=== PATIENT | female | born 1975 | race Caucasian/White ===

== ENCOUNTER 2019-06-29 11:19 | Emergency (ER) | payer OTHER | END 2019-06-29 12:42 | disposition home or self-care (01) | LOC: JER 11:19 ==

== ENCOUNTER 2021-12-01 11:04 | Emergency (ER) | payer OTHER ==
[2021-12-01 12:48] VITALS: TEMP 98.8; BMI 22.9
[2021-12-01] MEDS ORDERED: SODIUM CHLORIDE 0.9% 1000 ML INFUS.BAG IV ONE (13:13)
[2021-12-01 13:52] LABS: BASO % 0.3 % (0-2.0); EOS % 0.1 % (0-4.5); HEMATOCRIT 28.9 % (32.4-45.2); HEMOGLOBIN 9.9 GM/dL (10.7-15.3); LYMPH % 23.9 % (8-40); MCH 28.4 pg (25.7-33.7); MCHC 34.4 g/dl (32.0-36.0); MEAN CELL VOLUME 82.6 fl (80-96); MEAN PLT VOLUME 8.2 fl (7.5-11.1); MONO % 6.5 % (3.8-10.2); NEUT % 69.2 % (42.8-82.8); PLATELET COUNT 261 10^3/uL (134-434); RBC 3.49 M/mm3 (3.60-5.2); RDW 13.3 % (11.6-15.6); WHITE BLOOD COUNT 5.5 K/mm3 (4.0-10.0)
[2021-12-01 14:09] LABS: CHLORIDE 95 mmol/L (98-107); SODIUM 132 mmol/L (136-145)
[2021-12-01 14:11] LABS: CALCIUM 9.1 mg/dL (8.5-10.1)
[2021-12-01 14:12] LABS: ALBUMIN 3.2 g/dl (3.4-5.0); ANION GAP 15 MMOL/L (8-16); BLOOD UREA NITROGEN 35.2 mg/dL (7-18); CO2 22 mmol/L (21-32); GLUCOSE,RANDOM 94 mg/dL (74-106); MAGNESIUM 1.8 mg/dL (1.8-2.4)
[2021-12-01 14:15] LABS: PHOSPHOROUS 3.4 mg/dL (2.5-4.9); SGOT/AST 11 U/L (15-37); SGPT/ALT 15 U/L (13-61)
[2021-12-01 14:17] LABS: BILIRUBIN,TOTAL 0.4 mg/dL (0.2-1)
[2021-12-01 14:18] LABS: ALK PHOS 119 U/L (45-117); TOT PROT 7.4 g/dl (6.4-8.2)
[2021-12-01 14:23] LABS: CREATININE 15.7 mg/dL (0.55-1.3)
[2021-12-01 17:47] VITALS: BP 104/80; PULSE 96
== END 2021-12-01 18:30 | disposition left against medical advice (07) ==
LOC: JER 11:04
DX: U07.1 COVID-19 (principal); R53.0 Neoplastic (malignant) related fatigue
CPT/HCPCS: 36415; 71045-TC-FY; 80053; 82550; 83735; 84100; 84484; 85025; 93005; 93010; 99285-25; C9803; U0003; U0005

== ENCOUNTER 2022-10-15 10:27 | Observation (INO) | payer OTHER ==
[2022-10-15 10:41] VITALS: RESP 18; BMI 27.3
[2022-10-15 11:45] LABS: BASO % 0.7 % (0-2.0); EOS % 2.2 % (0-4.5); HEMATOCRIT 17.2 % (32.4-45.2); LYMPH % 17.4 % (8-40); MCH 29.6 pg (25.7-33.7); MCHC 34.7 g/dl (32.0-36.0); MEAN CELL VOLUME 85.1 fl (80-96); MEAN PLT VOLUME 6.5 fl (7.5-11.1); MONO % 6.6 % (3.8-10.2); NEUT % 73.1 % (42.8-82.8); PLATELET COUNT 282 10^3/uL (134-434); RBC 2.02 M/mm3 (3.60-5.2); RDW 13.6 % (11.6-15.6); WHITE BLOOD COUNT 6.7 K/mm3 (4.0-10.0)
[2022-10-15 11:49] LABS: INR 0.92 (0.83-1.09); PROTHROMBIN TIME (PATIENT) 10.6 SEC (9.7-13.0)
[2022-10-15 11:51] LABS: ACTIVATED PTT 29.5 SECONDS (25.2-36.5)
[2022-10-15 12:10] LABS: CHLORIDE 97 mmol/L (98-107); SODIUM 135 mmol/L (136-145)
[2022-10-15 12:12] LABS: ALBUMIN 2.8 g/dl (3.4-5.0); ANION GAP 11 MMOL/L (8-16); BLOOD UREA NITROGEN 55.7 mg/dL (7-18); CALCIUM 8.2 mg/dL (8.5-10.1); CO2 27 mmol/L (21-32); GLUCOSE,RANDOM 96 mg/dL (74-106); MAGNESIUM 1.5 mg/dL (1.8-2.4)
[2022-10-15 12:16] LABS: PHOSPHOROUS 7.7 mg/dL (2.5-4.9); SGOT/AST 14 U/L (15-37); SGPT/ALT 24 U/L (13-61)
[2022-10-15 12:18] LABS: BILIRUBIN,TOTAL 0.2 mg/dL (0.2-1)
[2022-10-15 12:19] LABS: ALK PHOS 93 U/L (45-117)
[2022-10-15 12:23] LABS: CREATININE 13.7 mg/dL (0.55-1.3)
[2022-10-15] MEDS ORDERED: NAPROXEN 500 MG TABLET PO PRN (12:59)
[2022-10-15] MEDS ORDERED: oxyCODONE HCL 5 MG TABLET PO PRN (13:00)
[2022-10-15] MEDS ORDERED: ACETAMINOPHEN 325 MG TABLET (FP) PO PRN (13:00)
[2022-10-15] MEDS ORDERED: ACETAMINOPHEN 325 MG TABLET (FP) ONE (15:28)
[2022-10-15] MEDS ORDERED: oxyCODONE HCL 5 MG TABLET ONE (15:29)
[2022-10-15] MEDS ORDERED: PERITONEAL DIALYSIS 1.5% SOLN 2,500 ML IP SCH (16:30)
[2022-10-15] MEDS ORDERED: FUROSEMIDE 40 MG/4 ML INJECTABLE VIAL ONE (17:59)
[2022-10-15] MEDS ORDERED: FUROSEMIDE 40 MG/4 ML INJECTABLE VIAL IVPUSH SCH (18:00)
[2022-10-15 20:30] VITALS: BP 146/94; PULSE 86
[2022-10-15 21:46] VITALS: TEMP 98.8
[2022-10-16] MEDS ORDERED: LEVOTHYROXINE NA 25 MCG TABLET (FP) PO SCH (07:00)
[2022-10-16] MEDS ORDERED: CYCLOBENZAPRINE HCL 5 MG TABLET PO SCH (10:00)
== END 2022-10-15 22:58 | disposition home or self-care (01) ==
LOC: JER 10:27 → JERBED 12:43
PROVIDERS: ADMIT Internal Medicine; ATTEND Internal Medicine
PROC: 3E033GC Introduction of Other Therapeutic Substance into Peripheral Vein, Percutaneous Approach (ICD-10-PCS; principal; 2022-10-15)
PROC: 30233N1 Transfusion of Nonautologous Red Blood Cells into Peripheral Vein, Percutaneous Approach (ICD-10-PCS; 2022-10-15)
DX: D64.9 Anemia, unspecified (principal); N18.6 End stage renal disease; C85.80 Other specified types of non-Hodgkin lymphoma, unspecified site; Z99.2 Dependence on renal dialysis; Z88.8 Allergy status to other drugs, medicaments and biological substances; E05.90 Thyrotoxicosis, unspecified without thyrotoxic crisis or storm
CPT/HCPCS: 36430; 80053; 83735; 84100; 84484; 85025; 85610; 85730; 86922; 93005; 93010; 96374; 99285-25; C9803-CS; G0378; P9058; U0003; U0005

== ENCOUNTER 2022-11-18 19:40 | Observation (INO) | payer OTHER ==
[2022-11-18 19:44] VITALS: BMI 25.8
[2022-11-18] MEDS ORDERED: SODIUM CHLORIDE 0.9% 500 ML INFUS.BAG IV ONE (20:18)
[2022-11-18] MEDS ORDERED: FAMOTIDINE 20 MG/50 ML IVPB 20 MG/50 ML MG IVPB ONE ×2 (20:19→20:46)
[2022-11-18] MEDS ORDERED: ONDANSETRON 4 MG/2 ML VIAL IVPUSH ONE ×2 (20:32→23:12)
[2022-11-18] MEDS ORDERED: ONDANSETRON 4 MG/2 ML VIAL ONE (20:46)
[2022-11-18] MEDS ORDERED: ACETAMINOPHEN 1000 MG/100 ML BAG IVPB ONE (20:47)
[2022-11-18] MEDS ORDERED: ACETAMINOPHEN INJECTION 100 ML IVPB ONE (20:47)
[2022-11-18 20:55] LABS: BASO % 0.2 % (0-2.0); HEMATOCRIT 31.8 % (32.4-45.2); HEMOGLOBIN 10.7 GM/dL (10.7-15.3); LYMPH % 10.7 % (8-40); MCH 28.2 pg (25.7-33.7); MCHC 33.7 g/dl (32.0-36.0); MEAN CELL VOLUME 83.7 fl (80-96); MEAN PLT VOLUME 7.4 fl (7.5-11.1); MONO % 3.1 % (3.8-10.2); PLATELET COUNT 367 10^3/uL (134-434); RBC 3.79 M/mm3 (3.60-5.2); RDW 13.4 % (11.6-15.6); WHITE BLOOD COUNT 12.9 K/mm3 (4.0-10.0)
[2022-11-18 21:19] LABS: CHLORIDE 88 mmol/L (98-107); SODIUM 130 mmol/L (136-145)
[2022-11-18 21:21] LABS: CALCIUM 10.1 mg/dL (8.5-10.1)
[2022-11-18 21:22] LABS: ALBUMIN 3.8 g/dl (3.4-5.0); CO2 25 mmol/L (21-32); GLUCOSE,RANDOM 127 mg/dL (74-106); LIPASE 452 U/L (73-393); MAGNESIUM 1.6 mg/dL (1.8-2.4)
[2022-11-18 21:24] LABS: SGPT/ALT 15 U/L (13-61)
[2022-11-18 21:25] LABS: PHOSPHOROUS 3.8 mg/dL (2.5-4.9); SGOT/AST 10 U/L (15-37)
[2022-11-18 21:26] LABS: BF WBC & OTHER NUCLEATED CELLS 8 /mm3
[2022-11-18 21:26] LABS: BILIRUBIN,TOTAL 0.7 mg/dL (0.2-1); TOT PROT 7.9 g/dl (6.4-8.2)
[2022-11-18 21:27] LABS: ALK PHOS 138 U/L (45-117); ANION GAP 16 MMOL/L (8-16); CREATININE 15.5 mg/dL (0.55-1.3)
[2022-11-18] MEDS ORDERED: MAGNESIUM SULF 50% (8.12 MEQ/2 ML-1 GM VIAL) IVPB ONE ×2 (21:36→21:43)
[2022-11-18] MEDS ORDERED: POTASSIUM CHLORIDE TABS 20 MEQ TABLET.ER (FP) PO ONE (21:36)
[2022-11-18] MEDS ORDERED: POTASSIUM CHLORIDE ORAL LIQUID 20 MEQ/15 ML PO ONE (21:42)
[2022-11-18] MEDS ORDERED: POTASSIUM CHLORIDE ORAL LIQUID 20 MEQ/15 ML ONE (22:44)
[2022-11-18] MEDS ORDERED: MAGNESIUM 1GM/D5W - 1 GM/100 ML IVPB IVPB ONE (22:44)
[2022-11-19] MEDS ORDERED: ONDANSETRON 4 MG/2 ML VIAL ONE (00:12)
[2022-11-19 00:45] LABS: CHLORIDE 91 mmol/L (98-107); SODIUM 131 mmol/L (136-145)
[2022-11-19 00:47] LABS: ALBUMIN 3.4 g/dl (3.4-5.0); BLOOD UREA NITROGEN 44.5 mg/dL (7-18); CALCIUM 9.6 mg/dL (8.5-10.1); CO2 24 mmol/L (21-32); GLUCOSE,RANDOM 137 mg/dL (74-106)
[2022-11-19 00:50] LABS: SGOT/AST 8 U/L (15-37); SGPT/ALT 14 U/L (13-61)
[2022-11-19 00:52] LABS: BILIRUBIN,TOTAL 0.5 mg/dL (0.2-1)
[2022-11-19 00:53] LABS: ALK PHOS 121 U/L (45-117)
[2022-11-19] MEDS ORDERED: METOCLOPRAMIDE HCL INJECTION 10 MG/2 ML VIAL ONE (00:57)
[2022-11-19] MEDS ORDERED: METOCLOPRAMIDE HCL INJECTION 10 MG/2 ML VIAL IVPUSH ONE (00:57)
[2022-11-19 01:14] LABS: ANION GAP 15 MMOL/L (8-16); CREATININE 15.1 mg/dL (0.55-1.3)
[2022-11-19] MEDS: KCL 10 MEQ IVPB 10 MEQ/100 ML INFUS.BAG IVPB SCH ×3 (01:50→08:50)
[2022-11-19] MEDS ORDERED: KCL 10 MEQ IVPB 10 MEQ/100 ML INFUS.BAG IVPB ONE ×2 (01:53→04:04)
[2022-11-19] MEDS ORDERED: ALBUTEROL SO4 HFA INHALER IH PRN (01:57)
[2022-11-19] MEDS ORDERED: SODIUM CHLORIDE 0.9% 500 ML INFUS.BAG IV ONE (02:23)
[2022-11-19] MEDS ORDERED: ONDANSETRON *ODT* 4 MG TABLET SL PRN (02:50)
[2022-11-19] MEDS ORDERED: KCL 10 MEQ IVPB 10 MEQ/100 ML INFUS.BAG IVPB SCH (09:00)
[2022-11-19 09:02] LABS: BASO % 0.2 % (0-2.0); HEMOGLOBIN 9.4 GM/dL (10.7-15.3); LYMPH % 13.1 % (8-40); MCH 28.5 pg (25.7-33.7); MCHC 33.6 g/dl (32.0-36.0); MEAN PLT VOLUME 8.1 fl (7.5-11.1); MONO % 4.5 % (3.8-10.2); NEUT % 82.2 % (42.8-82.8); PLATELET COUNT 306 10^3/uL (134-434); RBC 3.29 M/mm3 (3.60-5.2); RDW 13.3 % (11.6-15.6); WHITE BLOOD COUNT 12.2 K/mm3 (4.0-10.0)
[2022-11-19] MEDS: BUDESONIDE/FORMETEROL FUMARATE 160/4.5 mcg INHALER IH SCH ×2 (09:02→22:34)
[2022-11-19 09:09] LABS: CHLORIDE 91 mmol/L (98-107); SODIUM 130 mmol/L (136-145)
[2022-11-19 09:11] LABS: CALCIUM 9.5 mg/dL (8.5-10.1)
[2022-11-19 09:12] LABS: ALBUMIN 3.3 g/dl (3.4-5.0); ANION GAP 17 MMOL/L (8-16); BLOOD UREA NITROGEN 44.8 mg/dL (7-18); CO2 22 mmol/L (21-32); GLUCOSE,RANDOM 107 mg/dL (74-106); MAGNESIUM 2.1 mg/dL (1.8-2.4)
[2022-11-19 09:14] LABS: SGPT/ALT 16 U/L (13-61)
[2022-11-19 09:15] LABS: SGOT/AST 8 U/L (15-37)
[2022-11-19 09:16] LABS: BILIRUBIN,TOTAL 0.5 mg/dL (0.2-1); TOT PROT 6.9 g/dl (6.4-8.2)
[2022-11-19 09:18] LABS: ALK PHOS 119 U/L (45-117)
[2022-11-19 09:25] LABS: CREATININE 15.4 mg/dL (0.55-1.3)
[2022-11-19] MEDS ORDERED: HEPARIN NA (PORCINE) 5,000 UNITS/ML 1ML VIAL SQ SCH (10:00)
[2022-11-19] MEDS ORDERED: POTASSIUM CHLORIDE TABS 20 MEQ TABLET.ER (FP) PO ONE (10:16)
[2022-11-19] MEDS: ACETAMINOPHEN 325 MG TABLET (FP) PO PRN (10:37)
[2022-11-19] MEDS: PERITONEAL DIALYSIS 2.5% SOLN 2,500 ML IP SCH ×2 (16:24→22:20)
[2022-11-19] MEDS: oxyCODONE HCL 5 MG TABLET PO PRN (18:12)
[2022-11-19 19:13] LABS: CHLORIDE 92 mmol/L (98-107); SODIUM 131 mmol/L (136-145)
[2022-11-19 19:16] LABS: CALCIUM 9.2 mg/dL (8.5-10.1)
[2022-11-19 19:17] LABS: ANION GAP 14 MMOL/L (8-16); BLOOD UREA NITROGEN 42.3 mg/dL (7-18); CO2 24 mmol/L (21-32); GLUCOSE,RANDOM 109 mg/dL (74-106)
[2022-11-19 19:43] LABS: CREATININE 15.5 mg/dL (0.55-1.3)
[2022-11-19] MEDS: HEPARIN NA (PORCINE) 5,000 UNITS/ML 1ML VIAL SQ SCH (22:02)
[2022-11-20 00:35] VITALS: RESP 18
[2022-11-20] MEDS: PERITONEAL DIALYSIS 2.5% SOLN 2,500 ML IP SCH ×3 (04:25→17:02)
[2022-11-20] MEDS: HEPARIN NA (PORCINE) 5,000 UNITS/ML 1ML VIAL SQ SCH (05:19)
[2022-11-20 07:52] LABS: HEMOGLOBIN 8.1 GM/dL (10.7-15.3); MCH 28.6 pg (25.7-33.7); MEAN CELL VOLUME 84.4 fl (80-96); MEAN PLT VOLUME 7.8 fl (7.5-11.1); PLATELET COUNT 263 10^3/uL (134-434); RBC 2.84 M/mm3 (3.60-5.2); RDW 13.6 % (11.6-15.6); WHITE BLOOD COUNT 8.5 K/mm3 (4.0-10.0)
[2022-11-20 08:14] LABS: CHLORIDE 96 mmol/L (98-107); SODIUM 135 mmol/L (136-145)
[2022-11-20 08:16] LABS: BLOOD UREA NITROGEN 39.2 mg/dL (7-18)
[2022-11-20 08:17] LABS: ANION GAP 16 MMOL/L (8-16); CALCIUM 8.5 mg/dL (8.5-10.1); CO2 24 mmol/L (21-32); GLUCOSE,RANDOM 97 mg/dL (74-106); MAGNESIUM 1.9 mg/dL (1.8-2.4)
[2022-11-20 08:20] LABS: PHOSPHOROUS 4.1 mg/dL (2.5-4.9)
[2022-11-20 08:30] LABS: CREATININE 14.7 mg/dL (0.55-1.3)
[2022-11-20] MEDS ORDERED: POTASSIUM CHLORIDE TABS 20 MEQ TABLET.ER (FP) PO ONE (10:22)
[2022-11-20] MEDS: BUDESONIDE/FORMETEROL FUMARATE 160/4.5 mcg INHALER IH SCH (10:51)
[2022-11-20] MEDS: ACETAMINOPHEN 325 MG TABLET (FP) PO PRN (11:20)
[2022-11-20 15:14] LABS: BASO % 0.6 % (0-2.0); EOS % 1.1 % (0-4.5); HEMATOCRIT 26.9 % (32.4-45.2); LYMPH % 21.2 % (8-40); MCH 28.6 pg (25.7-33.7); MCHC 33.6 g/dl (32.0-36.0); MEAN PLT VOLUME 7.5 fl (7.5-11.1); MONO % 5.4 % (3.8-10.2); NEUT % 71.7 % (42.8-82.8); PLATELET COUNT 279 10^3/uL (134-434); RBC 3.17 M/mm3 (3.60-5.2); RDW 13.6 % (11.6-15.6); WHITE BLOOD COUNT 8.8 K/mm3 (4.0-10.0)
[2022-11-20 16:54] VITALS: BP 132/81; PULSE 82; TEMP 98
[2022-11-20] MEDS: oxyCODONE HCL 5 MG TABLET PO PRN (17:56)
[2022-11-23 13:06] LABS: BODY FLUID ALBUMIN <0.2 g/dL (Not Estab.)
== END 2022-11-20 18:47 | disposition home or self-care (01) | DRG 391 ==
LOC: JER 19:40 → JERBED 11-19 01:21 → OBSVTOIN 11-19 01:21 → INTOOBSV 11-19 01:21 → J4S 11-19 05:18
PROVIDERS: ADMIT Internal Medicine; ATTEND Internal Medicine
PROC: 3E1M39Z Irrigation of Peritoneal Cavity using Dialysate, Percutaneous Approach (ICD-10-PCS; principal; 2022-11-19)
DX: K52.9 Noninfective gastroenteritis and colitis, unspecified (principal); N18.6 End stage renal disease; E87.1 Hypo-osmolality and hyponatremia; E87.0 Hyperosmolality and hypernatremia; Z99.2 Dependence on renal dialysis; D64.9 Anemia, unspecified; E05.90 Thyrotoxicosis, unspecified without thyrotoxic crisis or storm; E87.6 Hypokalemia
CPT/HCPCS: 0241U-QW; 36415; 71045-TC-FY; 76705-TC; 80048; 80053; 82042; 82272; 83615; 83690; 83735; 83986; 84100; 85025; 85027; 87040; 87070; 87075; 87205; 93005; 93010; 99285-25; G0378; Q0162

== ENCOUNTER 2022-12-24 16:11 | Emergency (ER) | payer OTHER ==
[2022-12-24 16:47] VITALS: BP 115/87; PULSE 112; RESP 18; TEMP 98.9; BMI 26.5
[2022-12-24] MEDS ORDERED: ONDANSETRON *ODT* 4 MG TABLET SL ONE (18:29)
[2022-12-24 18:33] LABS: CHLORIDE 89 mmol/L (98-107); SODIUM 130 mmol/L (136-145)
[2022-12-24 18:35] LABS: ALBUMIN 3.6 g/dl (3.4-5.0); ANION GAP 14 MMOL/L (8-16); BASO % 0.5 % (0-2.0); CALCIUM 10.2 mg/dL (8.5-10.1); CO2 27 mmol/L (21-32); EOS % 0.9 % (0-4.5); HEMATOCRIT 29.3 % (32.4-45.2); HEMOGLOBIN 9.9 GM/dL (10.7-15.3); LYMPH % 27.2 % (8-40); MEAN CELL VOLUME 85.4 fl (80-96); MEAN PLT VOLUME 7.4 fl (7.5-11.1); MONO % 6.1 % (3.8-10.2); NEUT % 65.3 % (42.8-82.8); PLATELET COUNT 397 10^3/uL (134-434); RBC 3.43 M/mm3 (3.60-5.2); RDW 13.9 % (11.6-15.6)
[2022-12-24 18:36] LABS: BLOOD UREA NITROGEN 33.5 mg/dL (7-18); GLUCOSE,RANDOM 97 mg/dL (74-106); MAGNESIUM 1.8 mg/dL (1.8-2.4)
[2022-12-24 18:38] LABS: PHOSPHOROUS 3.7 mg/dL (2.5-4.9)
[2022-12-24 18:39] LABS: SGOT/AST 6 U/L (15-37); SGPT/ALT 16 U/L (13-61)
[2022-12-24] MEDS ORDERED: ONDANSETRON *ODT* 4 MG TABLET ONE (18:39)
[2022-12-24 18:40] LABS: BILIRUBIN,TOTAL 0.6 mg/dL (0.2-1); TOT PROT 7.4 g/dl (6.4-8.2)
[2022-12-24 18:41] LABS: ALK PHOS 148 U/L (45-117)
[2022-12-24 18:45] LABS: CREATININE 14.1 mg/dL (0.55-1.3)
[2022-12-24] MEDS ORDERED: SODIUM CHLORIDE 0.9% 500 ML INFUS.BAG IV ONE (19:27)
[2022-12-24] MEDS ORDERED: ACETAMINOPHEN 1000 MG/100 ML BAG IVPB ONE (20:02)
[2022-12-24] MEDS ORDERED: ACETAMINOPHEN INJECTION 100 ML IVPB ONE (20:06)
== END 2022-12-24 21:04 | disposition home or self-care (01) ==
LOC: MERGE 16:11 → JER 16:11
PROC: 3E0333Z Introduction of Anti-inflammatory into Peripheral Vein, Percutaneous Approach (ICD-10-PCS; principal; 2022-12-24)
DX: N18.6 End stage renal disease (principal); A09 Infectious gastroenteritis and colitis, unspecified
CPT/HCPCS: 0241U-QW; 36415; 80053; 82962; 83735; 84100; 85025; 87040; 87070; 87075; 87205; 93005; 93010; 99284-25; Q0162

== ENCOUNTER 2022-12-25 18:20 | Inpatient (IN) | payer OTHER ==
[2022-12-25] MEDS ORDERED: ONDANSETRON 4 MG/2 ML VIAL IVPUSH ONE ×2 (19:14→20:01)
[2022-12-25] MEDS ORDERED: MAG HYDROX/AL HYDROX/SIMETH 30 ML UNIT-DOSE CUP PO ONE (19:15)
[2022-12-25] MEDS ORDERED: FAMOTIDINE 20 MG/50 ML IVPB 20 MG/50 ML MG IVPB ONE ×2 (19:15→19:43)
[2022-12-25] MEDS ORDERED: ONDANSETRON *ODT* 4 MG TABLET SL ONE (19:20)
[2022-12-25] MEDS ORDERED: ONDANSETRON *ODT* 4 MG TABLET ONE (19:43)
[2022-12-25] MEDS ORDERED: MAG HYDROX/AL HYDROX/SIMETH 30 ML UNIT-DOSE CUP ONE (19:43)
[2022-12-25] MEDS ORDERED: ONDANSETRON 4 MG/2 ML VIAL ONE (19:56)
[2022-12-25 20:16] LABS: BASO % 0.4 % (0-2.0); HEMATOCRIT 28.7 % (32.4-45.2); HEMOGLOBIN 9.8 GM/dL (10.7-15.3); LYMPH % 9.8 % (8-40); MCH 28.8 pg (25.7-33.7); MCHC 34.2 g/dl (32.0-36.0); MEAN CELL VOLUME 84.3 fl (80-96); MONO % 3.6 % (3.8-10.2); NEUT % 86.2 % (42.8-82.8); PLATELET COUNT 460 10^3/uL (134-434); RDW 13.7 % (11.6-15.6); WHITE BLOOD COUNT 12.6 K/mm3 (4.0-10.0)
[2022-12-25 20:36] LABS: CHLORIDE 88 mmol/L (98-107); SODIUM 128 mmol/L (136-145)
[2022-12-25 20:37] LABS: MAGNESIUM 1.5 mg/dL (1.8-2.4)
[2022-12-25 20:38] LABS: CALCIUM 10.8 mg/dL (8.5-10.1)
[2022-12-25 20:39] LABS: ALBUMIN 3.7 g/dl (3.4-5.0); ANION GAP 19 MMOL/L (8-16); BLOOD UREA NITROGEN 37.8 mg/dL (7-18); CO2 20 mmol/L (21-32); GLUCOSE,RANDOM 141 mg/dL (74-106); LIPASE 414 U/L (73-393)
[2022-12-25] MEDS ORDERED: ACETAMINOPHEN 1000 MG/100 ML BAG IVPB ONE (20:39)
[2022-12-25 20:41] LABS: PHOSPHOROUS 2.9 mg/dL (2.5-4.9)
[2022-12-25 20:42] LABS: SGOT/AST 10 U/L (15-37)
[2022-12-25 20:43] LABS: BILIRUBIN,TOTAL 0.5 mg/dL (0.2-1); TOT PROT 7.5 g/dl (6.4-8.2)
[2022-12-25 20:44] LABS: ALK PHOS 156 U/L (45-117)
[2022-12-25 20:50] LABS: SGPT/ALT 15 U/L (13-61)
[2022-12-25 20:52] LABS: CREATININE 13.9 mg/dL (0.55-1.3)
[2022-12-25] MEDS ORDERED: ACETAMINOPHEN INJECTION 100 ML IVPB ONE (21:02)
[2022-12-25] MEDS ORDERED: SODIUM CHLORIDE 0.9% 500 ML INFUS.BAG IV ONE (21:05)
[2022-12-25] MEDS ORDERED: morphine CARPU-JECT 2 MG/1 ML DISP.SYRIN IVPUSH ONE (21:22)
[2022-12-25] MEDS ORDERED: MAGNESIUM SULF 50% (8.12 MEQ/2 ML-1 GM VIAL) IVPB ONE (21:22)
[2022-12-25] MEDS ORDERED: MAGNESIUM 1GM/D5W - 1 GM/100 ML IVPB IVPB ONE (22:54)
[2022-12-25] MEDS ORDERED: SODIUM CHLORIDE 1,000 ML IV SCH (23:30)
[2022-12-26 02:23] LABS: HEMATOCRIT 26.1 % (32.4-45.2); HEMOGLOBIN 8.8 GM/dL (10.7-15.3); MCH 28.8 pg (25.7-33.7); MCHC 33.5 g/dl (32.0-36.0); MEAN CELL VOLUME 85.9 fl (80-96); MEAN PLT VOLUME 7.5 fl (7.5-11.1); PLATELET COUNT 378 10^3/uL (134-434); RBC 3.04 M/mm3 (3.60-5.2); RDW 13.9 % (11.6-15.6); WHITE BLOOD COUNT 16.4 K/mm3 (4.0-10.0)
[2022-12-26 02:42] LABS: CHLORIDE 93 mmol/L (98-107); SODIUM 130 mmol/L (136-145)
[2022-12-26 02:43] LABS: CALCIUM 10.2 mg/dL (8.5-10.1)
[2022-12-26 02:44] LABS: ANION GAP 14 MMOL/L (8-16); BLOOD UREA NITROGEN 39.5 mg/dL (7-18); CO2 23 mmol/L (21-32); GLUCOSE,RANDOM 121 mg/dL (74-106)
[2022-12-26] MEDS ORDERED: VANCOMYCIN 1 GM in D5W (PRE-DOCKED) 1,000 MG/250 ML IVPB ONE (03:36)
[2022-12-26] MEDS ORDERED: MEROPENEM 1 GM in DEXTROSE 5%-WATER 100 ML IVPB ONE (03:39)
[2022-12-26] MEDS ORDERED: VANCOMYCIN/WATER FOR INJ (PEG) 1,000 MG/200 ML BAG IVPB ONE (03:54)
[2022-12-26] MEDS ORDERED: MEROPENEM 1 GM VIAL (RESTRICTED TO ID) IVPB ONE (03:54)
[2022-12-26 04:23] LABS: ANISOCYTOSIS 0; MACROCYTOSIS 0
[2022-12-26 07:20] LABS: BASO % 0.2 % (0-2.0); HEMATOCRIT 22.5 % (32.4-45.2); HEMOGLOBIN 7.5 GM/dL (10.7-15.3); LYMPH % 11.7 % (8-40); MCH 28.8 pg (25.7-33.7); MCHC 33.3 g/dl (32.0-36.0); MEAN CELL VOLUME 86.6 fl (80-96); MEAN PLT VOLUME 7.5 fl (7.5-11.1); MONO % 4.2 % (3.8-10.2); NEUT % 83.9 % (42.8-82.8); PLATELET COUNT 316 10^3/uL (134-434); RDW 13.8 % (11.6-15.6); WHITE BLOOD COUNT 13.8 K/mm3 (4.0-10.0)
[2022-12-26 07:35] LABS: CHLORIDE 93 mmol/L (98-107); SODIUM 129 mmol/L (136-145)
[2022-12-26 07:38] LABS: CALCIUM 9.4 mg/dL (8.5-10.1)
[2022-12-26 07:39] LABS: ANION GAP 11 MMOL/L (8-16); BLOOD UREA NITROGEN 40.3 mg/dL (7-18); CO2 25 mmol/L (21-32); GLUCOSE,RANDOM 108 mg/dL (74-106)
[2022-12-26 07:42] LABS: PHOSPHOROUS 6.4 mg/dL (2.5-4.9); SGOT/AST 8 U/L (15-37); SGPT/ALT 11 U/L (13-61)
[2022-12-26 07:43] LABS: BILIRUBIN,TOTAL 0.4 mg/dL (0.2-1)
[2022-12-26 07:46] LABS: ALBUMIN 2.9 g/dl (3.4-5.0); ALK PHOS 126 U/L (45-117); CREATININE 13.9 mg/dL (0.55-1.3)
[2022-12-26] MEDS: HEPARIN NA (PORCINE) 5,000 UNITS/ML 1ML VIAL SQ SCH ×3 (10:01→21:14)
[2022-12-26 10:35] VITALS: BMI 26.5
[2022-12-26] MEDS ORDERED: SODIUM CHLORIDE 1,000 ML IV SCH (10:45)
[2022-12-26] MEDS: PERITONEAL DIALYSIS 1.5% SOLN 2,500 ML IP SCH ×3 (12:26→22:50)
[2022-12-26] MEDS ORDERED: MELATONIN 5 MG TABLETS PO ONE (20:41)
[2022-12-26] MEDS ORDERED: MAG HYDROX/AL HYDROX/SIMETH 30 ML UNIT-DOSE CUP PO ONE (20:41)
[2022-12-27] MEDS: HEPARIN NA (PORCINE) 5,000 UNITS/ML 1ML VIAL SQ SCH ×2 (05:40→14:27)
[2022-12-27] MEDS: PERITONEAL DIALYSIS 1.5% SOLN 2,500 ML IP SCH ×3 (05:55→17:04)
[2022-12-27 10:19] LABS: BASO % 0.8 % (0-2.0); EOS % 1.6 % (0-4.5); HEMATOCRIT 24.4 % (32.4-45.2); HEMOGLOBIN 8.3 GM/dL (10.7-15.3); LYMPH % 26.5 % (8-40); MCH 29.6 pg (25.7-33.7); MCHC 34.1 g/dl (32.0-36.0); MEAN CELL VOLUME 86.7 fl (80-96); MONO % 5.8 % (3.8-10.2); NEUT % 65.3 % (42.8-82.8); PLATELET COUNT 295 10^3/uL (134-434); RBC 2.82 M/mm3 (3.60-5.2); WHITE BLOOD COUNT 10.1 K/mm3 (4.0-10.0)
[2022-12-27 10:26] LABS: CHLORIDE 95 mmol/L (98-107); SODIUM 133 mmol/L (136-145)
[2022-12-27 10:28] LABS: ANION GAP 14 MMOL/L (8-16); CALCIUM 9.1 mg/dL (8.5-10.1); CO2 23 mmol/L (21-32)
[2022-12-27 10:29] LABS: GLUCOSE,RANDOM 101 mg/dL (74-106)
[2022-12-27 10:32] LABS: SGOT/AST 18 U/L (15-37); SGPT/ALT 13 U/L (13-61)
[2022-12-27 10:33] LABS: BILIRUBIN,TOTAL 0.3 mg/dL (0.2-1)
[2022-12-27 10:35] LABS: ALK PHOS 125 U/L (45-117)
[2022-12-27] MEDS ORDERED: EPOETIN ALFA-EPBX 10,000 UNIT/ML VIAL SQ ONE (14:00)
[2022-12-27 14:22] VITALS: BP 126/78; PULSE 74; RESP 20; TEMP 98.6
== END 2022-12-27 18:19 | disposition home or self-care (01) | DRG 391 ==
LOC: JER 18:20 → JERBED 23:11 → J4S 12-26 08:59
PROVIDERS: ADMIT Internal Medicine; ATTEND Internal Medicine
PROC: 3E1M39Z Irrigation of Peritoneal Cavity using Dialysate, Percutaneous Approach (ICD-10-PCS; principal; 2022-12-26)
DX: R11.2 Nausea with vomiting, unspecified (principal); N18.6 End stage renal disease; C85.90 Non-Hodgkin lymphoma, unspecified, unspecified site; E87.1 Hypo-osmolality and hyponatremia; I12.0 Hypertensive chronic kidney disease with stage 5 chronic kidney disease or end stage renal disease; D64.9 Anemia, unspecified; N83.8 Other noninflammatory disorders of ovary, fallopian tube and broad ligament; E86.0 Dehydration
CPT/HCPCS: 0241U-QW; 36415; 71045-TC-FY; 76830-TC; 80048; 80053; 83690; 83735; 84100; 84443; 84702; 84703; 85025; 86304; 87040; 93005; 93010; 99285-25; J1644; Q5106

== ENCOUNTER 2023-05-29 20:27 | Observation (INO) | payer OTHER ==
[2023-05-29 20:35] VITALS: BMI 26.3
[2023-05-29] MEDS ORDERED: ACETAMINOPHEN 1000 MG/100 ML BAG IVPB ONE (21:48)
[2023-05-29] MEDS ORDERED: FAMOTIDINE 20 MG/50 ML IVPB 20 MG/50 ML MG IVPB ONE ×2 (21:48→21:59)
[2023-05-29] MEDS ORDERED: MAG HYDROX/AL HYDROX/SIMETH 30 ML UNIT-DOSE CUP PO ONE (21:49)
[2023-05-29] MEDS ORDERED: SODIUM CHLORIDE 0.9% 500 ML INFUS.BAG IV ONE ×2 (21:51→23:55)
[2023-05-29] MEDS ORDERED: ONDANSETRON 4 MG/2 ML VIAL IVPUSH ONE (21:54)
[2023-05-29] MEDS ORDERED: MAG HYDROX/AL HYDROX/SIMETH 30 ML UNIT-DOSE CUP ONE (21:59)
[2023-05-29] MEDS ORDERED: ACETAMINOPHEN INJECTION 100 ML IVPB ONE (21:59)
[2023-05-29] MEDS ORDERED: ONDANSETRON 4 MG/2 ML VIAL ONE (21:59)
[2023-05-29 22:22] LABS: BASO % 0.4 % (0-2.0); EOS % 0.2 % (0-4.5); HEMATOCRIT 31.2 % (32.4-45.2); HEMOGLOBIN 10.6 GM/dL (10.7-15.3); LYMPH % 18.2 % (8-40); MCH 28.3 pg (25.7-33.7); MEAN CELL VOLUME 83.1 fl (80-96); MEAN PLT VOLUME 7.6 fl (7.5-11.1); MONO % 5.3 % (3.8-10.2); NEUT % 75.9 % (42.8-82.8); PLATELET COUNT 360 10^3/uL (134-434); RBC 3.75 M/mm3 (3.60-5.2); RDW 13.8 % (11.6-15.6); WHITE BLOOD COUNT 8.3 K/mm3 (4.0-10.0)
[2023-05-29 22:38] LABS: CHLORIDE 88 mmol/L (98-107); POTASSIUM 3.2 mmol/L (3.5-5.1); SODIUM 130 mmol/L (136-145)
[2023-05-29 22:40] LABS: ALBUMIN 3.6 g/dl (3.4-5.0); BLOOD UREA NITROGEN 47.7 mg/dL (7-18); CALCIUM 9.5 mg/dL (8.5-10.1)
[2023-05-29 22:41] LABS: ANION GAP 17 MMOL/L (8-16); CO2 26 mmol/L (21-32); GLUCOSE,RANDOM 102 mg/dL (74-106); LIPASE 475 U/L (73-393); MAGNESIUM 1.7 mg/dL (1.8-2.4)
[2023-05-29 22:43] LABS: PHOSPHOROUS 5.6 mg/dL (2.5-4.9); SGOT/AST 9 U/L (15-37); SGPT/ALT 19 U/L (13-61)
[2023-05-29 22:45] LABS: BILIRUBIN,TOTAL 0.5 mg/dL (0.2-1); TOT PROT 7.6 g/dl (6.4-8.2)
[2023-05-29 22:46] LABS: ALK PHOS 138 U/L (45-117)
[2023-05-29 22:53] LABS: CREATININE 15.7 mg/dL (0.55-1.3)
[2023-05-29] MEDS ORDERED: MAGNESIUM SULF 50% (8.12 MEQ/2 ML-1 GM VIAL) IVPB ONE (23:13)
[2023-05-29] MEDS ORDERED: KCL 10 MEQ IVPB 10 MEQ/100 ML INFUS.BAG IVPB ONE (23:28)
[2023-05-29] MEDS ORDERED: MAGNESIUM 1GM/D5W - 1 GM/100 ML IVPB IVPB ONE (23:28)
[2023-05-29] MEDS: KCL 10 MEQ IVPB 10 MEQ/100 ML INFUS.BAG IVPB SCH (23:39)
[2023-05-30] MEDS ORDERED: KCL 10 MEQ IVPB 10 MEQ/100 ML INFUS.BAG IVPB ONE ×2 (01:44→04:34)
[2023-05-30] MEDS ORDERED: ALBUTEROL SO4 HFA INHALER IH PRN (01:45)
[2023-05-30] MEDS: KCL 10 MEQ IVPB 10 MEQ/100 ML INFUS.BAG IVPB SCH ×2 (01:51→04:15)
[2023-05-30] MEDS ORDERED: MELATONIN 5 MG TABLETS PO ONE (03:13)
[2023-05-30] MEDS ORDERED: ACETAMINOPHEN 325 MG TABLET (FP) PO ONE (03:14)
[2023-05-30] MEDS ORDERED: ACETAMINOPHEN 325 MG TABLET (FP) ONE (03:16)
[2023-05-30] MEDS ORDERED: MELATONIN 5 MG TABLETS ONE (03:16)
[2023-05-30 03:40] LABS: BF WBC & OTHER NUCLEATED CELLS 8 /mm3
[2023-05-30 04:43] LABS: BODY FLUID MACROPHAGES 71 %; BODY FLUID MONOCYTE 10 %
[2023-05-30 06:14] LABS: BASO % 0.7 % (0-2.0); EOS % 1.6 % (0-4.5); HEMATOCRIT 26.2 % (32.4-45.2); HEMOGLOBIN 8.7 GM/dL (10.7-15.3); LYMPH % 31.9 % (8-40); MCH 28.1 pg (25.7-33.7); MCHC 33.1 g/dl (32.0-36.0); MEAN CELL VOLUME 85.1 fl (80-96); MEAN PLT VOLUME 7.7 fl (7.5-11.1); MONO % 6.7 % (3.8-10.2); NEUT % 59.1 % (42.8-82.8); PLATELET COUNT 281 10^3/uL (134-434); RBC 3.08 M/mm3 (3.60-5.2); WHITE BLOOD COUNT 8.2 K/mm3 (4.0-10.0)
[2023-05-30 06:28] LABS: CHLORIDE 97 mmol/L (98-107); POTASSIUM 3.6 mmol/L (3.5-5.1); SODIUM 133 mmol/L (136-145)
[2023-05-30 06:30] LABS: CALCIUM 8.8 mg/dL (8.5-10.1)
[2023-05-30 06:31] LABS: ALBUMIN 2.9 g/dl (3.4-5.0); ANION GAP 13 MMOL/L (8-16); BLOOD UREA NITROGEN 45.7 mg/dL (7-18); CO2 23 mmol/L (21-32); GLUCOSE,RANDOM 103 mg/dL (74-106)
[2023-05-30 06:34] LABS: SGOT/AST 8 U/L (15-37); SGPT/ALT 14 U/L (13-61)
[2023-05-30 06:36] LABS: BILIRUBIN,TOTAL 0.3 mg/dL (0.2-1); TOT PROT 6.1 g/dl (6.4-8.2)
[2023-05-30 06:37] LABS: ALK PHOS 116 U/L (45-117)
[2023-05-30 06:51] LABS: CREATININE 14.7 mg/dL (0.55-1.3)
[2023-05-30] MEDS ORDERED: ALBUTEROL SO4 HFA INHALER IH ONE (09:26)
[2023-05-30] MEDS ORDERED: SODIUM CHLORIDE 0.9%/KCL 20 MEQ/1,000 ML INFUS.BAG IV SCH (09:45)
[2023-05-30] MEDS ORDERED: BUDESONIDE/FORMETEROL FUMARATE 160/4.5 mcg INHALER IH SCH (10:00)
[2023-05-30 12:04] VITALS: TEMP 98
[2023-05-30] MEDS ORDERED: ONDANSETRON 4 MG/2 ML VIAL IVPUSH PRN (12:12)
[2023-05-30] MEDS ORDERED: FAMOTIDINE 20 MG/50 ML IVPB 20 MG/50 ML MG IVPB SCH (12:15)
[2023-05-30 16:01] VITALS: RESP 18
[2023-05-30 17:57] VITALS: BP 137/78; PULSE 72
== END 2023-05-30 18:42 | disposition left against medical advice (07) ==
LOC: JER 20:27 → JERBED 05-30 00:57 → J5S 05-30 17:21
PROVIDERS: ADMIT Internal Medicine; ATTEND Family Medicine
PROC: 3E033NZ Introduction of Analgesics, Hypnotics, Sedatives into Peripheral Vein, Percutaneous Approach (ICD-10-PCS; principal; 2023-05-30)
PROC: 3E033GC Introduction of Other Therapeutic Substance into Peripheral Vein, Percutaneous Approach (ICD-10-PCS; 2023-05-30)
PROC: 3E0337Z Introduction of Electrolytic and Water Balance Substance into Peripheral Vein, Percutaneous Approach (ICD-10-PCS; 2023-05-30)
DX: N18.6 End stage renal disease (principal); D64.9 Anemia, unspecified; E87.6 Hypokalemia; R19.7 Diarrhea, unspecified; E03.9 Hypothyroidism, unspecified; F12.90 Cannabis use, unspecified, uncomplicated; Z99.2 Dependence on renal dialysis; Z88.0 Allergy status to penicillin; Z88.8 Allergy status to other drugs, medicaments and biological substances; J45.909 Unspecified asthma, uncomplicated; F17.210 Nicotine dependence, cigarettes, uncomplicated
CPT/HCPCS: 36415; 80053; 82728; 83540; 83550; 83690; 83735; 84100; 84702; 84703; 85025; 87070; 87075; 87205; 93005; 93010; 96365; 96367; 96375; 99285-25; G0378

== ENCOUNTER 2023-11-10 10:37 | Emergency (ER) | payer OTHER ==
[2023-11-10 10:55] VITALS: BP 130/93; PULSE 94; RESP 18; TEMP 98.7; BMI 26.5
[2023-11-10] MEDS ORDERED: LIDOCAINE HCL 5% TOP OINTMENT 50 GM TUBE TP ONE (12:13)
== END 2023-11-10 13:47 | disposition home or self-care (01) ==
LOC: JERFT 10:37
DX: M25.531 Pain in right wrist (principal); M67.431 Ganglion, right wrist; R22.31 Localized swelling, mass and lump, right upper limb
CPT/HCPCS: 99283-25

== ENCOUNTER 2023-12-16 11:53 | Inpatient (IN) | payer OTHER ==
[2023-12-16 11:59] VITALS: BMI 26.5
[2023-12-16] MEDS ORDERED: ONDANSETRON 4 MG TABLET PO ONE (12:23)
[2023-12-16] MEDS ORDERED: ACETAMINOPHEN 500 MG TABLET (FP) PO ONE (12:23)
[2023-12-16] MEDS ORDERED: SODIUM CHLORIDE 0.9% 500 ML INFUS.BAG IV ONE (12:53)
[2023-12-16] MEDS ORDERED: ONDANSETRON 4 MG/2 ML VIAL IVPUSH ONE (12:54)
[2023-12-16] MEDS ORDERED: ACETAMINOPHEN 1000 MG/100 ML BAG IVPB ONE (12:54)
[2023-12-16] MEDS ORDERED: ONDANSETRON 4 MG/2 ML VIAL ONE (13:36)
[2023-12-16] MEDS ORDERED: ACETAMINOPHEN INJECTION 100 ML IVPB ONE (13:36)
[2023-12-16 13:51] LABS: BASO % 0.5 % (0-2.0); EOS % 0.3 % (0-4.5); HEMATOCRIT 30.6 % (32.4-45.2); HEMOGLOBIN 10.4 GM/dL (10.7-15.3); LYMPH % 17.2 % (8-40); MCH 29.2 pg (25.7-33.7); MCHC 34.1 g/dl (32.0-36.0); MEAN CELL VOLUME 85.7 fl (80-96); MEAN PLT VOLUME 7.4 fl (7.5-11.1); MONO % 5.1 % (3.8-10.2); NEUT % 76.9 % (42.8-82.8); PLATELET COUNT 372 10^3/uL (134-434); RBC 3.57 M/mm3 (3.60-5.2); RDW 13.2 % (11.6-15.6); WHITE BLOOD COUNT 9.3 K/mm3 (4.0-10.0)
[2023-12-16 14:12] LABS: CHLORIDE 84 mmol/L (98-107); POTASSIUM 3.3 mmol/L (3.5-5.1); SODIUM 124 mmol/L (136-145)
[2023-12-16 14:14] LABS: CALCIUM 8.2 mg/dL (8.5-10.1); GLUCOSE,RANDOM 88 mg/dL (74-106)
[2023-12-16 14:15] LABS: ALBUMIN 3.4 g/dl (3.4-5.0); ANION GAP 16 mmol/L (4-13); BLOOD UREA NITROGEN 39.6 mg/dL (7-18); CO2 24 mmol/L (21-32); MAGNESIUM 1.9 mg/dL (1.8-2.4)
[2023-12-16 14:17] LABS: PHOSPHOROUS 4.5 mg/dL (2.5-4.9); SGPT/ALT 17 U/L (13-61)
[2023-12-16 14:18] LABS: SGOT/AST 10 U/L (15-37)
[2023-12-16 14:19] LABS: BILIRUBIN,TOTAL 0.5 mg/dL (0.2-1); TOT PROT 7.8 g/dl (6.4-8.2)
[2023-12-16 14:20] LABS: ALK PHOS 164 U/L (45-117)
[2023-12-16 14:46] LABS: CREATININE 16.5 mg/dL (0.55-1.3)
[2023-12-16] MEDS ORDERED: POTASSIUM CHLORIDE ORAL LIQUID 20 MEQ/15 ML PO ONE (15:05)
[2023-12-16] MEDS ORDERED: POTASSIUM CHLORIDE TABS 20 MEQ TABLET.ER (FP) PO ONE (15:16)
[2023-12-16] MEDS: SODIUM CHLORIDE 1,000 ML IV SCH (15:27)
[2023-12-16] MEDS ORDERED: DOCUSATE SODIUM 100 MG CAPSULE (FP) PO PRN (17:14)
[2023-12-16] MEDS ORDERED: ACETAMINOPHEN 325 MG TABLET (FP) PO PRN (17:14)
[2023-12-16] MEDS ORDERED: ALBUTEROL SO4 0.083% IH SOL 2.5 MG/3 ML VIAL.NEB. NEB PRN (17:15)
[2023-12-16] MEDS: SEVELAMER CARBONATE 800 MG TAB (FP) PO SCH (19:08)
[2023-12-16] MEDS ORDERED: HEPARIN NA (PORCINE) 5,000 UNITS/ML 1ML VIAL ONE (22:36)
[2023-12-16] MEDS ORDERED: oxyCODONE HCL 5 MG TABLET ONE (22:37)
[2023-12-16] MEDS: oxyCODONE HCL 5 MG TABLET PO PRN (22:40)
[2023-12-16] MEDS: HEPARIN NA (PORCINE) 5,000 UNITS/ML 1ML VIAL SQ SCH (22:41)
[2023-12-16] MEDS: BUDESONIDE/FORMETEROL FUMARATE 160/4.5 mcg INHALER IH SCH (23:26)
[2023-12-17] MEDS: SODIUM CHLORIDE 1,000 ML IV SCH ×2 (06:54→16:32)
[2023-12-17 10:31] LABS: BASO % 0.9 % (0-2.0); EOS % 2.3 % (0-4.5); HEMATOCRIT 24.7 % (32.4-45.2); HEMOGLOBIN 8.5 GM/dL (10.7-15.3); LYMPH % 26.5 % (8-40); MCH 29.8 pg (25.7-33.7); MCHC 34.3 g/dl (32.0-36.0); MEAN CELL VOLUME 86.7 fl (80-96); MEAN PLT VOLUME 7.3 fl (7.5-11.1); MONO % 5.7 % (3.8-10.2); NEUT % 64.6 % (42.8-82.8); PLATELET COUNT 297 10^3/uL (134-434); RBC 2.85 M/mm3 (3.60-5.2); RDW 13.2 % (11.6-15.6); WHITE BLOOD COUNT 8.2 K/mm3 (4.0-10.0)
[2023-12-17] MEDS: HEPARIN NA (PORCINE) 5,000 UNITS/ML 1ML VIAL SQ SCH ×2 (10:35→22:13)
[2023-12-17] MEDS: SEVELAMER CARBONATE 800 MG TAB (FP) PO SCH ×3 (10:35→17:49)
[2023-12-17] MEDS: CALCITRIOL 0.25 MCG CAPSULE (FP) PO SCH (10:35)
[2023-12-17 10:40] LABS: CHLORIDE 88 mmol/L (98-107); POTASSIUM 4.2 mmol/L (3.5-5.1); SODIUM 123 mmol/L (136-145)
[2023-12-17 10:43] LABS: ANION GAP 12 mmol/L (4-13); BLOOD UREA NITROGEN 50.3 mg/dL (7-18); CALCIUM 7.5 mg/dL (8.5-10.1); CO2 23 mmol/L (21-32)
[2023-12-17 10:44] LABS: GLUCOSE,RANDOM 89 mg/dL (74-106)
[2023-12-17 10:47] LABS: SGOT/AST < 3 U/L (15-37); SGPT/ALT 12 U/L (13-61)
[2023-12-17 10:48] LABS: BILIRUBIN,TOTAL 0.3 mg/dL (0.2-1); TOT PROT 6.1 g/dl (6.4-8.2)
[2023-12-17 10:50] LABS: ALBUMIN 2.7 g/dl (3.4-5.0); ALK PHOS 131 U/L (45-117); CREATININE 17.8 mg/dL (0.55-1.3)
[2023-12-17] MEDS ORDERED: oxyCODONE HCL 5 MG TABLET ONE (14:06)
[2023-12-17] MEDS: oxyCODONE HCL 5 MG TABLET PO PRN (14:08)
[2023-12-17] MEDS: BUDESONIDE/FORMETEROL FUMARATE 160/4.5 mcg INHALER IH SCH ×2 (17:49→22:13)
[2023-12-18] MEDS ORDERED: ACETAMINOPHEN 1000 MG/100 ML BAG IVPB ONE (00:48)
[2023-12-18] MEDS: SODIUM CHLORIDE 1,000 ML IV SCH (06:54)
[2023-12-18 07:32] VITALS: TEMP 98
[2023-12-18 07:40] LABS: CHLORIDE 90 mmol/L (98-107); POTASSIUM 4.2 mmol/L (3.5-5.1); SODIUM 126 mmol/L (136-145)
[2023-12-18 07:44] LABS: ANION GAP 14 mmol/L (4-13); CO2 23 mmol/L (21-32); GLUCOSE,RANDOM 82 mg/dL (74-106)
[2023-12-18 07:45] LABS: BLOOD UREA NITROGEN 60.7 mg/dL (7-18)
[2023-12-18 07:57] LABS: CREATININE 18.3 mg/dL (0.55-1.3)
[2023-12-18] MEDS: SEVELAMER CARBONATE 800 MG TAB (FP) PO SCH (09:50)
[2023-12-18] MEDS: CALCITRIOL 0.25 MCG CAPSULE (FP) PO SCH (10:00)
[2023-12-18 10:03] VITALS: BP 121/84; PULSE 83; RESP 16
[2023-12-18] MEDS: PERITONEAL DIALYSIS 1.5% SOLN 2,500 ML IP SCH ×2 (10:08→10:09)
[2023-12-18] MEDS ORDERED: SODIUM CHLORIDE 1,000 ML IV STA (10:10)
[2023-12-18] MEDS: BUDESONIDE/FORMETEROL FUMARATE 160/4.5 mcg INHALER IH SCH (10:11)
[2023-12-18] MEDS: HEPARIN NA (PORCINE) 5,000 UNITS/ML 1ML VIAL SQ SCH (10:14)
[2023-12-18 12:22] LABS: BASO % 0.6 % (0-2.0); EOS % 1.1 % (0-4.5); HEMATOCRIT 24.3 % (32.4-45.2); HEMOGLOBIN 8.2 GM/dL (10.7-15.3); LYMPH % 17.3 % (8-40); MCH 29.6 pg (25.7-33.7); MCHC 33.9 g/dl (32.0-36.0); MEAN CELL VOLUME 87.3 fl (80-96); MEAN PLT VOLUME 7.4 fl (7.5-11.1); MONO % 5.8 % (3.8-10.2); NEUT % 75.2 % (42.8-82.8); PLATELET COUNT 269 10^3/uL (134-434); RBC 2.79 M/mm3 (3.60-5.2); RDW 13.1 % (11.6-15.6)
[2023-12-18 12:37] LABS: CHLORIDE 89 mmol/L (98-107); POTASSIUM 4.1 mmol/L (3.5-5.1); SODIUM 125 mmol/L (136-145)
[2023-12-18 12:39] LABS: CALCIUM 8.5 mg/dL (8.5-10.1)
[2023-12-18 12:40] LABS: ALBUMIN 2.7 g/dl (3.4-5.0); ANION GAP 13 mmol/L (4-13); BLOOD UREA NITROGEN 59.4 mg/dL (7-18); CO2 24 mmol/L (21-32); GLUCOSE,RANDOM 79 mg/dL (74-106)
[2023-12-18 12:43] LABS: SGOT/AST 11 U/L (15-37); SGPT/ALT 11 U/L (13-61)
[2023-12-18 12:44] LABS: BILIRUBIN,TOTAL 0.3 mg/dL (0.2-1); TOT PROT 5.9 g/dl (6.4-8.2)
[2023-12-18 12:46] LABS: ALK PHOS 135 U/L (45-117); CREATININE 18.4 mg/dL (0.55-1.3)
== END 2023-12-18 13:45 | disposition home or self-care (01) | DRG 640 ==
LOC: JER 11:53 → JERBED 15:46
PROVIDERS: ADMIT Family Medicine; ATTEND Family Medicine
DX: E87.1 Hypo-osmolality and hyponatremia (principal); N18.6 End stage renal disease; I12.0 Hypertensive chronic kidney disease with stage 5 chronic kidney disease or end stage renal disease
CPT/HCPCS: 0241U-QW; 36415; 80048; 80053; 83605; 83690; 83735; 84100; 84443; 84702; 84703; 85025; 93005; 93010; 99285-25

== ENCOUNTER 2024-01-15 18:28 | Emergency (ER) | payer OTHER ==
[2024-01-15 18:33] VITALS: TEMP 99; BMI 25.1
[2024-01-15 19:08] VITALS: PULSE 99
[2024-01-15 19:54] LABS: BASO % 1.2 % (0-2.0); EOS % 1.6 % (0-4.5); HEMATOCRIT 27.5 % (32.4-45.2); HEMOGLOBIN 9.6 GM/dL (10.7-15.3); LYMPH % 23.5 % (8-40); MCH 30.3 pg (25.7-33.7); MCHC 34.7 g/dl (32.0-36.0); MEAN CELL VOLUME 87.1 fl (80-96); MEAN PLT VOLUME 6.7 fl (7.5-11.1); MONO % 9.5 % (3.8-10.2); NEUT % 64.2 % (42.8-82.8); PLATELET COUNT 350 10^3/uL (134-434); RBC 3.16 M/mm3 (3.60-5.2); RDW 14.6 % (11.6-15.6); WHITE BLOOD COUNT 7.2 K/mm3 (4.0-10.0)
[2024-01-15] MEDS ORDERED: POTASSIUM CHLORIDE ORAL LIQUID 20 MEQ/15 ML ONE (19:55)
[2024-01-15] MEDS ORDERED: ONDANSETRON 4 MG/2 ML VIAL ONE (19:55)
[2024-01-15] MEDS: SODIUM CHLORIDE 0.9% 500 ML INFUS.BAG IV ONE (20:06)
[2024-01-15] MEDS: POTASSIUM CHLORIDE ORAL LIQUID 20 MEQ/15 ML PO ONE (20:06)
[2024-01-15] MEDS: ONDANSETRON 4 MG/2 ML VIAL IVPUSH ONE (20:07)
[2024-01-15 20:58] LABS: CHLORIDE 94 mmol/L (98-107); POTASSIUM 4.6 mmol/L (3.5-5.1); SODIUM 132 mmol/L (136-145)
[2024-01-15 21:02] LABS: CALCIUM 7.6 mg/dL (8.5-10.1); GLUCOSE,RANDOM 104 mg/dL (74-106)
[2024-01-15 21:03] LABS: ALBUMIN 2.6 g/dl (3.4-5.0); ANION GAP 11 mmol/L (4-13); CO2 27 mmol/L (21-32); MAGNESIUM 1.8 mg/dL (1.8-2.4)
[2024-01-15 21:05] LABS: PHOSPHOROUS 5.5 mg/dL (2.5-4.9)
[2024-01-15 21:06] LABS: SGOT/AST 24 U/L (15-37)
[2024-01-15 21:07] LABS: BILIRUBIN,TOTAL 0.4 mg/dL (0.2-1); TOT PROT 6.4 g/dl (6.4-8.2)
[2024-01-15 21:10] LABS: SGPT/ALT 18 U/L (13-61)
[2024-01-15 21:30] LABS: ALK PHOS 173 U/L (45-117)
[2024-01-15 21:47] LABS: CHLORIDE 100 mmol/L (98-107); POTASSIUM 4.6 mmol/L (3.5-5.1); SODIUM 135 mmol/L (136-145)
[2024-01-15 21:49] LABS: ANION GAP 7 mmol/L (4-13); CALCIUM 7.3 mg/dL (8.5-10.1); CO2 29 mmol/L (21-32)
[2024-01-15 21:50] LABS: BLOOD UREA NITROGEN 28.3 mg/dL (7-18); GLUCOSE,RANDOM 87 mg/dL (74-106)
[2024-01-15 21:54] LABS: CREATININE 12.5 mg/dL (0.55-1.3)
[2024-01-15 21:54] LABS: CREATININE 13.3 mg/dL (0.55-1.3)
[2024-01-15 22:30] VITALS: BP 123/88; RESP 16
== END 2024-01-15 22:31 | disposition home or self-care (01) ==
LOC: JER 18:28
PROC: 3E033GC Introduction of Other Therapeutic Substance into Peripheral Vein, Percutaneous Approach (ICD-10-PCS; principal; 2024-01-15)
DX: E87.6 Hypokalemia (principal); E87.1 Hypo-osmolality and hyponatremia
CPT/HCPCS: 36415; 80048; 80053; 83735; 84100; 85025; 93005; 93010; 96374; 99284-25

== ENCOUNTER 2024-02-16 07:00 | Day surgery (SDC) | payer OTHER ==
[2024-02-13 10:18] VITALS: BMI 24.5
[2024-02-16] MEDS: AZTREONAM 1 GM in DEXTROSE 5%-WATER - 50 ML IVPB ONE (09:05)
[2024-02-16] MEDS: GENTAMICIN 80 MG PREMIXED IVPB 80 MG/100 ML BAG IVPB ONE (09:41)
[2024-02-16 10:42] VITALS: TEMP 98.7
[2024-02-16 11:21] VITALS: RESP 20
[2024-02-16 11:22] VITALS: BP 103/72; PULSE 84
== END 2024-02-16 11:35 | disposition home or self-care (01) ==
LOC: JASU-ENDO 07:00
PROVIDERS: ATTEND Student in an Organized Health Care Education/Training Program
PROC: 0DBK8ZX Excision of Ascending Colon, Via Natural or Artificial Opening Endoscopic, Diagnostic (ICD-10-PCS; principal; 2024-02-16 08:30)
DX: Z12.11 Encounter for screening for malignant neoplasm of colon (principal); D12.2 Benign neoplasm of ascending colon; K64.8 Other hemorrhoids
CPT/HCPCS: 36415; 84132; 88305-TC

== ENCOUNTER 2024-02-28 09:49 | Emergency (ER) | payer OTHER ==
[2024-02-28 10:10] VITALS: BP 130/90; PULSE 113; RESP 17; TEMP 98.9; BMI 29.0
[2024-02-28] MEDS: SODIUM CHLORIDE 0.9% 500 ML INFUS.BAG IV ONE ×2 (10:22→13:10)
[2024-02-28] MEDS: ACETAMINOPHEN 1000 MG/100 ML BAG IVPB ONE (10:22)
[2024-02-28] MEDS ORDERED: ACETAMINOPHEN INJECTION 100 ML IVPB ONE (10:24)
[2024-02-28 10:36] LABS: BASO % 0.4 % (0-2.0); EOS % 1.1 % (0-4.5); HEMOGLOBIN 10.3 GM/dL (10.7-15.3); LYMPH % 9.8 % (8-40); MCH 29.4 pg (25.7-33.7); MCHC 33.4 g/dl (32.0-36.0); MEAN CELL VOLUME 88.1 fl (80-96); MEAN PLT VOLUME 6.7 fl (7.5-11.1); NEUT % 80.7 % (42.8-82.8); PLATELET COUNT 379 10^3/uL (134-434); RBC 3.52 M/mm3 (3.60-5.2); RDW 14.9 % (11.6-15.6); WHITE BLOOD COUNT 8.8 K/mm3 (4.0-10.0)
[2024-02-28 10:53] LABS: CHLORIDE 93 mmol/L (98-107); POTASSIUM 4.1 mmol/L (3.5-5.1); SODIUM 126 mmol/L (136-145)
[2024-02-28 10:55] LABS: ALBUMIN 2.7 g/dl (3.4-5.0); ANION GAP 8 mmol/L (4-13); CALCIUM 7.7 mg/dL (8.5-10.1); CO2 25 mmol/L (21-32); GLUCOSE,RANDOM 98 mg/dL (74-106); MAGNESIUM 1.4 mg/dL (1.8-2.4)
[2024-02-28 10:56] LABS: BLOOD UREA NITROGEN 47.3 mg/dL (7-18)
[2024-02-28 10:58] LABS: SGOT/AST 19 U/L (15-37)
[2024-02-28 10:59] LABS: PHOSPHOROUS 5.2 mg/dL (2.5-4.9); SGPT/ALT 15 U/L (13-61)
[2024-02-28 11:00] LABS: BILIRUBIN,TOTAL 0.4 mg/dL (0.2-1); TOT PROT 6.6 g/dl (6.4-8.2)
[2024-02-28 11:01] LABS: ALK PHOS 167 U/L (45-117)
[2024-02-28 11:02] LABS: CREATININE 12.8 mg/dL (0.55-1.3)
[2024-02-28 12:13] LABS: BF WBC & OTHER NUCLEATED CELLS 17 /mm3; BODY FLUID MONOCYTE 40 %; BODYL FLD EOSINOPHIL 2 %
[2024-02-28 12:33] LABS: CHLORIDE 98 mmol/L (98-107); POTASSIUM 4.5 mmol/L (3.5-5.1); SODIUM 129 mmol/L (136-145)
[2024-02-28 12:36] LABS: ANION GAP 6 mmol/L (4-13); BLOOD UREA NITROGEN 46.5 mg/dL (7-18); CO2 26 mmol/L (21-32); GLUCOSE,RANDOM 111 mg/dL (74-106)
[2024-02-28 12:48] LABS: CREATININE 12.3 mg/dL (0.55-1.3)
== END 2024-02-28 15:24 | disposition home or self-care (01) ==
LOC: JER 09:49
PROC: 3E030NZ Introduction of Analgesics, Hypnotics, Sedatives into Peripheral Vein, Open Approach (ICD-10-PCS; principal; 2024-02-28)
DX: R53.1 Weakness (principal); M79.10 Myalgia, unspecified site; E87.1 Hypo-osmolality and hyponatremia; E86.0 Dehydration; Z20.822 Contact with and (suspected) exposure to COVID-19
CPT/HCPCS: 0241U-QW; 36415; 80048; 80053; 83735; 84100; 85025; 87070; 87075; 87205; 99284-25; J0131

== ENCOUNTER 2024-04-20 07:19 | Inpatient (IN) | payer OTHER ==
[2024-04-20 07:33] VITALS: BMI 26.2
[2024-04-20 08:52] LABS: INR 1.06 (0.83-1.09); PROTHROMBIN TIME (PATIENT) 12.2 SEC (9.7-13.0)
[2024-04-20 08:55] LABS: ACTIVATED PTT 33.4 SECONDS (25.2-36.5)
[2024-04-20 09:03] LABS: BASO % 1.3 % (0-2.0); EOS % 3.5 % (0-4.5); HEMATOCRIT 33.6 % (32.4-45.2); HEMOGLOBIN 10.9 GM/dL (10.7-15.3); LYMPH % 19.4 % (8-40); MCH 28.9 pg (25.7-33.7); MCHC 32.6 g/dl (32.0-36.0); MEAN CELL VOLUME 88.7 fl (80-96); MEAN PLT VOLUME 7.7 fl (7.5-11.1); MONO % 7.9 % (3.8-10.2); NEUT % 67.9 % (42.8-82.8); PLATELET COUNT 292 10^3/uL (134-434); RBC 3.79 M/mm3 (3.60-5.2); RDW 16.1 % (11.6-15.6)
[2024-04-20 09:11] LABS: CHLORIDE 105 mmol/L (98-107); POTASSIUM 4.9 mmol/L (3.5-5.1); SODIUM 138 mmol/L (136-145)
[2024-04-20 09:12] LABS: CALCIUM 9.8 mg/dL (8.5-10.1)
[2024-04-20 09:13] LABS: ANION GAP 11 mmol/L (4-13); BLOOD UREA NITROGEN 33.6 mg/dL (7-18); CO2 23 mmol/L (21-32); GLUCOSE,RANDOM 99 mg/dL (74-106)
[2024-04-20 09:16] LABS: SGOT/AST 23 U/L (15-37); SGPT/ALT 19 U/L (13-61)
[2024-04-20 09:18] LABS: BILIRUBIN,TOTAL 0.5 mg/dL (0.2-1); TOT PROT 6.7 g/dl (6.4-8.2)
[2024-04-20 09:19] LABS: ALK PHOS 150 U/L (45-117)
[2024-04-20 09:28] LABS: CREATININE 10.7 mg/dL (0.55-1.3)
[2024-04-20 09:32] LABS: VENOUS BASE EXCESS -2.3 mmol/L (-2-2); VENOUS O2 SATURATION 45.9 % (70-80); VENOUS PCO2 41.6 mmHg (38-52); VENOUS PH 7.36 (7.310-7.410)
[2024-04-20] MEDS ORDERED: ACETAMINOPHEN INJECTION 100 ML IVPB ONE ×2 (09:58→19:53)
[2024-04-20] MEDS: ACETAMINOPHEN 1000 MG/100 ML BAG IVPB ONE ×2 (10:35→20:08)
[2024-04-20] MEDS ORDERED: AZITHROMYCIN IVPB 500 MG/250 ML BAG IVPB ONE (10:40)
[2024-04-20] MEDS: AZITHROMYCIN IVPB 500 MG in DEXTROSE 5%-WATER - 250 ML IVPB ONE ×2 (10:55→18:27)
[2024-04-20] MEDS ORDERED: ONDANSETRON 4 MG/2 ML VIAL ONE (11:08)
[2024-04-20] MEDS: ONDANSETRON 4 MG/2 ML VIAL IVPUSH ONE (11:11)
[2024-04-20] MEDS ORDERED: SODIUM CHLORIDE 250 ML IV PRN (12:18)
[2024-04-20] MEDS ORDERED: ALBUMIN HUMAN 25% 12.5 GM/50 ML VIAL IVPB SCH (12:30)
[2024-04-20] MEDS: VANCOMYCIN 1,000 MG in DEXTROSE 5%-WATER - 250 ML IVPB ONE (14:02)
[2024-04-20] MEDS: CEFEPIME HCL 1 GM VIAL (RESTRICTED TO ID) IVPB ONE ×2 (14:03→17:38)
[2024-04-20] MEDS ORDERED: CEFEPIME 1 GM/100 ML BAG IVPB ONE (17:33)
[2024-04-21] MEDS: VANCOMYCIN 1,000 MG in DEXTROSE 5%-WATER - 250 ML IVPB ONE (00:52)
[2024-04-21] MEDS ORDERED: ALBUTEROL SO4 2.5/IPRATROPIUM 0.5 INH SOL 3 ML VIAL.NEB. NEB PRN (11:04)
[2024-04-21] MEDS ORDERED: SODIUM CHLORIDE 250 ML IV PRN (11:29)
[2024-04-21] MEDS: BUDESONIDE/FORMETEROL FUMARATE 160/4.5 mcg INHALER IH SCH (12:05)
[2024-04-21] MEDS: oxyCODONE HCL 5 MG TABLET PO ONE (21:39)
[2024-04-21] MEDS: ACETAMINOPHEN 1000 MG/100 ML BAG IVPB ONE (21:49)
[2024-04-22 09:07] LABS: BASO % 1.1 % (0-2.0); EOS % 7.5 % (0-4.5); HEMATOCRIT 28.8 % (32.4-45.2); HEMOGLOBIN 9.4 GM/dL (10.7-15.3); LYMPH % 15.5 % (8-40); MCH 29.3 pg (25.7-33.7); MCHC 32.8 g/dl (32.0-36.0); MEAN CELL VOLUME 89.3 fl (80-96); MEAN PLT VOLUME 7.5 fl (7.5-11.1); NEUT % 64.9 % (42.8-82.8); PLATELET COUNT 273 10^3/uL (134-434); RBC 3.22 M/mm3 (3.60-5.2); RDW 17.2 % (11.6-15.6); WHITE BLOOD COUNT 7.8 K/mm3 (4.0-10.0)
[2024-04-22 09:43] LABS: CHLORIDE 104 mmol/L (98-107); POTASSIUM 4.7 mmol/L (3.5-5.1); SODIUM 140 mmol/L (136-145)
[2024-04-22 09:58] LABS: ALBUMIN 2.6 g/dl (3.4-5.0)
[2024-04-22 09:59] LABS: ANION GAP 12 mmol/L (4-13); BLOOD UREA NITROGEN 36.4 mg/dL (7-18); CO2 24 mmol/L (21-32); GLUCOSE,RANDOM 83 mg/dL (74-106)
[2024-04-22 10:01] LABS: SGOT/AST 15 U/L (15-37); SGPT/ALT 12 U/L (13-61)
[2024-04-22 10:03] LABS: BILIRUBIN,TOTAL 0.4 mg/dL (0.2-1); TOT PROT 5.9 g/dl (6.4-8.2)
[2024-04-22 10:16] LABS: ALK PHOS 119 U/L (45-117); CREATININE 11.1 mg/dL (0.55-1.3)
[2024-04-22] MEDS: ALBUMIN HUMAN 25% 12.5 GM/50 ML VIAL IV SCH (11:55)
[2024-04-22] MEDS: CEFEPIME 0.5 GM in DEXTROSE 5%-WATER - 50 ML IVPB SCH (12:25)
[2024-04-22] MEDS: AZITHROMYCIN 500 MG TABLET PO SCH (12:25)
[2024-04-22] MEDS: ACETAMINOPHEN 1000 MG/100 ML BAG IVPB PRN (17:52)
[2024-04-23] MEDS ORDERED: SODIUM CHLORIDE 250 ML IV PRN (11:00)
[2024-04-23] MEDS: EPOETIN ALFA-EPBX 10,000 UNIT/ML VIAL IVPUSH ONE (11:05)
[2024-04-23 11:29] LABS: HEMATOCRIT 29.8 % (32.4-45.2); HEMOGLOBIN 9.8 GM/dL (10.7-15.3); MCH 29.3 pg (25.7-33.7); MCHC 32.9 g/dl (32.0-36.0); MEAN PLT VOLUME 7.6 fl (7.5-11.1); PLATELET COUNT 265 10^3/uL (134-434); RBC 3.35 M/mm3 (3.60-5.2)
[2024-04-23 11:53] LABS: CHLORIDE 101 mmol/L (98-107); POTASSIUM 4.5 mmol/L (3.5-5.1); SODIUM 136 mmol/L (136-145)
[2024-04-23 11:54] LABS: ANION GAP 6 mmol/L (4-13); BLOOD UREA NITROGEN 31.2 mg/dL (7-18); CALCIUM 9.6 mg/dL (8.5-10.1); CO2 28 mmol/L (21-32); GLUCOSE,RANDOM 89 mg/dL (74-106)
[2024-04-23 12:03] LABS: CREATININE 9.6 mg/dL (0.55-1.3)
[2024-04-23] MEDS: ALBUMIN HUMAN 25% 12.5 GM/50 ML VIAL IV SCH (12:40)
[2024-04-24] MEDS: ACETAMINOPHEN 500 MG TABLET (FP) PO PRN (00:10)
[2024-04-24 07:46] LABS: CHOLESTEROL 145 mg/dL (50-200)
[2024-04-24 07:47] LABS: LDL CHOLESTEROL (ONLY SJRH) 69 mg/dL (5-100)
[2024-04-24 07:50] LABS: HDL CHOLESTEROL 58 mg/dL (40-60)
[2024-04-24] MEDS ORDERED: SODIUM CHLORIDE 250 ML IV PRN (07:54)
[2024-04-24 09:43] LABS: HEMATOCRIT 31.5 % (32.4-45.2); HEMOGLOBIN 10.3 GM/dL (10.7-15.3); MCH 29.4 pg (25.7-33.7); MCHC 32.8 g/dl (32.0-36.0); MEAN CELL VOLUME 89.5 fl (80-96); MEAN PLT VOLUME 7.5 fl (7.5-11.1); PLATELET COUNT 277 10^3/uL (134-434); RBC 3.52 M/mm3 (3.60-5.2); RDW 17.3 % (11.6-15.6); WHITE BLOOD COUNT 7.1 K/mm3 (4.0-10.0)
[2024-04-24] MEDS: EPOETIN ALFA-EPBX 10,000 UNIT/ML VIAL IVPUSH ONE (10:13)
[2024-04-24 12:23] LABS: CHLORIDE 100 mmol/L (98-107); POTASSIUM 4.1 mmol/L (3.5-5.1); SODIUM 136 mmol/L (136-145)
[2024-04-24 12:25] LABS: CALCIUM 9.8 mg/dL (8.5-10.1)
[2024-04-24 12:26] LABS: ALBUMIN 2.8 g/dl (3.4-5.0); ANION GAP 7 mmol/L (4-13); BLOOD UREA NITROGEN 25.3 mg/dL (7-18); CO2 29 mmol/L (21-32); GLUCOSE,RANDOM 131 mg/dL (74-106)
[2024-04-24] MEDS: metoPROLOL SUCCINATE 25 MG TAB.SR.24H (FP) PO SCH (12:26)
[2024-04-24 12:28] LABS: SGOT/AST 21 U/L (15-37); SGPT/ALT 16 U/L (13-61)
[2024-04-24 12:30] LABS: BILIRUBIN,TOTAL 0.4 mg/dL (0.2-1)
[2024-04-24 12:31] LABS: ALK PHOS 127 U/L (45-117); CREATININE 8.3 mg/dL (0.55-1.3); TOT PROT 6.4 g/dl (6.4-8.2)
[2024-04-24 15:28] VITALS: RESP 18
[2024-04-24 17:44] VITALS: BP 127/93; PULSE 110; TEMP 98.2
== END 2024-04-24 18:45 | disposition home or self-care (01) | DRG 193 ==
LOC: JER 07:19 → JERBED 15:09 → J4W 21:52
PROVIDERS: ADMIT Family Medicine; ATTEND Family Medicine
PROC: 5A1D70Z Performance of Urinary Filtration, Intermittent, Less than 6 Hours Per Day (ICD-10-PCS; principal; 2024-04-20)
PROC: 5A1D70Z Performance of Urinary Filtration, Intermittent, Less than 6 Hours Per Day (ICD-10-PCS; 2024-04-22)
PROC: 5A1D70Z Performance of Urinary Filtration, Intermittent, Less than 6 Hours Per Day (ICD-10-PCS; 2024-04-23)
PROC: 5A1D70Z Performance of Urinary Filtration, Intermittent, Less than 6 Hours Per Day (ICD-10-PCS; 2024-04-24)
DX: J18.9 Pneumonia, unspecified organism (principal); N18.6 End stage renal disease; I12.0 Hypertensive chronic kidney disease with stage 5 chronic kidney disease or end stage renal disease; C85.80 Other specified types of non-Hodgkin lymphoma, unspecified site; I31.39 Other pericardial effusion (noninflammatory); R00.0 Tachycardia, unspecified; R59.9 Enlarged lymph nodes, unspecified; E03.9 Hypothyroidism, unspecified; R09.02 Hypoxemia; J45.909 Unspecified asthma, uncomplicated; E87.70 Fluid overload, unspecified; E87.8 Other disorders of electrolyte and fluid balance, not elsewhere classified; Z99.2 Dependence on renal dialysis
CPT/HCPCS: 0241U-QW; 36415; 71045-TC-FY; 71275-TC; 74177-TC; 80048; 80053; 80061; 82803; 83605; 84484; 84702; 84703; 85025; 85027; 85610; 85730; 86803; 86850; 86900; 86901; 87040; 87340; 93005; 93010; 93306-TC; 99285-25; J0131; Q5106

== ENCOUNTER 2024-08-30 11:11 | Inpatient (IN) | payer OTHER ==
[2024-08-30] MEDS ORDERED: fentaNYL CITRATE 250 MCG/5 ML VIAL ONE ×3 (11:57→17:39)
[2024-08-30 12:44] LABS: BASO % 0.7 % (0-2.0); EOS % 1.8 % (0-4.5); HEMATOCRIT 26.3 % (32.4-45.2); HEMOGLOBIN 8.5 GM/dL (10.7-15.3); MCH 29.2 pg (25.7-33.7); MCHC 32.5 g/dl (32.0-36.0); MEAN CELL VOLUME 89.9 fl (80-96); MEAN PLT VOLUME 7.5 fl (7.5-11.1); MONO % 6.1 % (3.8-10.2); NEUT % 77.4 % (42.8-82.8); PLATELET COUNT 333 10^3/uL (134-434); RBC 2.92 M/mm3 (3.60-5.2); RDW 16.5 % (11.6-15.6); WHITE BLOOD COUNT 10.3 K/mm3 (4.0-10.0)
[2024-08-30 12:53] LABS: INR 1.07 (0.83-1.09); PROTHROMBIN TIME (PATIENT) 12.3 SEC (9.7-13.0)
[2024-08-30 12:56] LABS: ACTIVATED PTT 26.5 SECONDS (25.2-36.5)
[2024-08-30 13:12] LABS: CHLORIDE 97 mmol/L (98-107); SODIUM 134 mmol/L (136-145)
[2024-08-30 13:14] LABS: ALBUMIN 2.3 g/dl (3.4-5.0); BLOOD UREA NITROGEN 42.4 mg/dL (7-18); CO2 24 mmol/L (21-32); GLUCOSE,RANDOM 210 mg/dL (74-106); MAGNESIUM 1.7 mg/dL (1.8-2.4)
[2024-08-30 13:15] LABS: ANION GAP 14 mmol/L (4-13); POTASSIUM 2.8 mmol/L (3.5-5.1)
[2024-08-30 13:17] LABS: PHOSPHOROUS 6.4 mg/dL (2.5-4.9); SGOT/AST 14 U/L (15-37); SGPT/ALT 27 U/L (13-61)
[2024-08-30 13:18] LABS: TOT PROT 4.8 g/dl (6.4-8.2)
[2024-08-30 13:20] LABS: ALK PHOS 158 U/L (45-117)
[2024-08-30] MEDS ORDERED: CEFEPIME 1 GM/100 ML BAG IVPB ONE (13:27)
[2024-08-30] MEDS ORDERED: VANCOMYCIN 1 GRAM (PRE-DOCKED) 1,000 MG/250 ML BAG IVPB ONE (13:27)
[2024-08-30] MEDS: CEFEPIME HCL 1 GM VIAL (RESTRICTED TO ID) IVPB ONE (13:38)
[2024-08-30 13:47] LABS: CREATININE 10.2 mg/dL (0.55-1.3)
[2024-08-30 14:17] LABS: BF WBC & OTHER NUCLEATED CELLS 16 /mm3
[2024-08-30] MEDS: VANCOMYCIN 1,000 MG in DEXTROSE 5%-WATER - 250 ML IVPB ONE (14:36)
[2024-08-30 15:04] LABS: BODY FLUID MACROPHAGES 92 %; BODY FLUID MESOTHELIAL 2 %
[2024-08-30 15:22] LABS: BILIRUBIN,TOTAL 0.4 mg/dL (0.2-1)
[2024-08-30] MEDS: PERITONEAL DIALYSIS 1.5% SOLN 2,500 ML IP SCH ×2 (15:50→23:59)
[2024-08-30 15:56] LABS: BASO % 0.3 % (0-2.0); EOS % 0.1 % (0-4.5); HEMATOCRIT 25.7 % (32.4-45.2); HEMOGLOBIN 8.2 GM/dL (10.7-15.3); MCH 28.9 pg (25.7-33.7); MCHC 32.1 g/dl (32.0-36.0); MEAN CELL VOLUME 90.1 fl (80-96); MEAN PLT VOLUME 7.3 fl (7.5-11.1); MONO % 3.9 % (3.8-10.2); NEUT % 88.7 % (42.8-82.8); PLATELET COUNT 375 10^3/uL (134-434); RBC 2.85 M/mm3 (3.60-5.2); RDW 16.9 % (11.6-15.6); WHITE BLOOD COUNT 15.5 K/mm3 (4.0-10.0)
[2024-08-30] MEDS ORDERED: MAGNESIUM SULFATE IN WATER 2 GM/50 ML IVPB IVPB ONE (18:27)
[2024-08-30] MEDS: MAGNESIUM SULF 50% (8.12 MEQ/2 ML-1 GM VIAL) IVPB ONE (18:35)
[2024-08-30] MEDS ORDERED: KCL 10 MEQ IVPB 10 MEQ/100 ML INFUS.BAG IVPB ONE (18:54)
[2024-08-30] MEDS: KCL 10 MEQ IVPB 10 MEQ/100 ML INFUS.BAG IVPB SCH (19:02)
[2024-08-30] MEDS: POTASSIUM CHLORIDE ORAL LIQUID 20 MEQ/15 ML PO ONE (20:34)
[2024-08-30] MEDS: SODIUM CHLORIDE 0.9% 500 ML INFUS.BAG IV ONE (20:39)
[2024-08-30 21:12] LABS: BASO % 0.2 % (0-2.0); HEMATOCRIT 21.6 % (32.4-45.2); MCH 29.1 pg (25.7-33.7); MCHC 32.5 g/dl (32.0-36.0); MEAN CELL VOLUME 89.3 fl (80-96); MEAN PLT VOLUME 7.4 fl (7.5-11.1); MONO % 3.5 % (3.8-10.2); NEUT % 90.3 % (42.8-82.8); PLATELET COUNT 301 10^3/uL (134-434); RBC 2.42 M/mm3 (3.60-5.2); RDW 16.6 % (11.6-15.6); WHITE BLOOD COUNT 18.8 K/mm3 (4.0-10.0)
[2024-08-30 21:19] LABS: INR 1.05 (0.83-1.09); PROTHROMBIN TIME (PATIENT) 12.1 SEC (9.7-13.0)
[2024-08-30 21:22] LABS: ACTIVATED PTT 26.1 SECONDS (25.2-36.5)
[2024-08-30] MEDS: POTASSIUM CHLORIDE TABS 10 MEQ TABLET.ER (FP) PO SCH (21:31)
[2024-08-30 21:34] LABS: CHLORIDE 94 mmol/L (98-107); POTASSIUM 3.7 mmol/L (3.5-5.1); SODIUM 130 mmol/L (136-145)
[2024-08-30 21:37] LABS: ALBUMIN 2.1 g/dl (3.4-5.0); ANION GAP 16 mmol/L (4-13); BLOOD UREA NITROGEN 46.6 mg/dL (7-18); CALCIUM 7.8 mg/dL (8.5-10.1); CO2 21 mmol/L (21-32); GLUCOSE,RANDOM 129 mg/dL (74-106); MAGNESIUM 2.3 mg/dL (1.8-2.4)
[2024-08-30 21:40] LABS: PHOSPHOROUS 7.5 mg/dL (2.5-4.9); SGOT/AST 13 U/L (15-37); SGPT/ALT 26 U/L (13-61)
[2024-08-30 21:42] LABS: BILIRUBIN,TOTAL 0.2 mg/dL (0.2-1); CREATININE 10.8 mg/dL (0.55-1.3); TOT PROT 4.9 g/dl (6.4-8.2)
[2024-08-30 21:43] LABS: ALK PHOS 149 U/L (45-117)
[2024-08-30 22:00] LABS: LACTIC ACID 5.9 mmol/L (0.4-2.0)
[2024-08-30] MEDS: MUPIROCIN 2% TOPICAL OINTMENT FOR DECOLONIZATION NS SCH (22:05)
[2024-08-30] MEDS: CHLORHEXIDINE GLUCONATE 4% CLEANSER FOR DECOLONIZATION TP SCH (22:05)
[2024-08-30] MEDS: oxyCODONE HCL 5 MG TABLET PO ONE (22:41)
[2024-08-30] MEDS: ACETAMINOPHEN 325 MG TABLET (FP) PO ONE (22:42)
[2024-08-31] MEDS ORDERED: oxyCODONE/APAP PERCOCET - MUST ORDER INDIVIDUAL COMPONENTS NR ONE (02:18)
[2024-08-31] MEDS: ACETAMINOPHEN 325 MG TABLET (FP) PO ONE (02:29)
[2024-08-31] MEDS: oxyCODONE HCL 5 MG TABLET PO ONE (02:29)
[2024-08-31 03:28] LABS: VENOUS O2 SATURATION 54.6 % (70-80); VENOUS PCO2 34.5 mmHg (38-52); VENOUS PH 7.369 (7.310-7.410)
[2024-08-31 03:29] LABS: BASO % 0.3 % (0-2.0); HEMATOCRIT 32.1 % (32.4-45.2); HEMOGLOBIN 10.7 GM/dL (10.7-15.3); LYMPH % 8.5 % (8-40); MCH 28.8 pg (25.7-33.7); MCHC 33.3 g/dl (32.0-36.0); MEAN CELL VOLUME 86.6 fl (80-96); MEAN PLT VOLUME 7.8 fl (7.5-11.1); MONO % 5.7 % (3.8-10.2); NEUT % 85.5 % (42.8-82.8); PLATELET COUNT 243 10^3/uL (134-434); RBC 3.71 M/mm3 (3.60-5.2); RDW 15.5 % (11.6-15.6); WHITE BLOOD COUNT 18.8 K/mm3 (4.0-10.0)
[2024-08-31 03:51] LABS: CHLORIDE 100 mmol/L (98-107); POTASSIUM 5.1 mmol/L (3.5-5.1); SODIUM 132 mmol/L (136-145)
[2024-08-31 03:53] LABS: CALCIUM 7.5 mg/dL (8.5-10.1)
[2024-08-31 03:54] LABS: ANION GAP 13 mmol/L (4-13); BLOOD UREA NITROGEN 48.4 mg/dL (7-18); CO2 19 mmol/L (21-32); GLUCOSE,RANDOM 96 mg/dL (74-106)
[2024-08-31 03:57] LABS: PHOSPHOROUS 6.8 mg/dL (2.5-4.9); SGOT/AST 11 U/L (15-37); SGPT/ALT 23 U/L (13-61)
[2024-08-31 03:58] LABS: BILIRUBIN,TOTAL 0.5 mg/dL (0.2-1); TOT PROT 4.9 g/dl (6.4-8.2)
[2024-08-31 04:00] LABS: ALK PHOS 136 U/L (45-117)
[2024-08-31 04:06] LABS: LACTIC ACID 3.9 mmol/L (0.4-2.0)
[2024-08-31 04:06] LABS: CREATININE 9.9 mg/dL (0.55-1.3)
[2024-08-31] MEDS: HYDROmorphone HCl 2 MG/ML VIAL IVPUSH PRN (06:00)
[2024-08-31 08:54] LABS: BASO % 0.7 % (0-2.0); HEMATOCRIT 28.8 % (32.4-45.2); HEMOGLOBIN 9.8 GM/dL (10.7-15.3); LYMPH % 9.1 % (8-40); MCH 29.1 pg (25.7-33.7); MCHC 33.9 g/dl (32.0-36.0); MEAN CELL VOLUME 85.9 fl (80-96); MEAN PLT VOLUME 8.3 fl (7.5-11.1); MONO % 5.7 % (3.8-10.2); NEUT % 84.5 % (42.8-82.8); PLATELET COUNT 226 10^3/uL (134-434); RBC 3.35 M/mm3 (3.60-5.2); RDW 15.7 % (11.6-15.6); WHITE BLOOD COUNT 15.9 K/mm3 (4.0-10.0)
[2024-08-31 11:17] LABS: ACTIVATED PTT 26.8 SECONDS (25.2-36.5); INR 0.98 (0.83-1.09); PROTHROMBIN TIME (PATIENT) 11.1 SEC (9.7-13.0)
[2024-08-31] MEDS ORDERED: CEFEPIME 1 GM in DEXTROSE 5%-WATER 100 ML IVPB SCH (13:00)
[2024-08-31 20:34] LABS: BASO % 0.7 % (0-2.0); EOS % 1.1 % (0-4.5); HEMATOCRIT 23.9 % (32.4-45.2); HEMOGLOBIN 8.1 GM/dL (10.7-15.3); LYMPH % 11.1 % (8-40); MCH 28.9 pg (25.7-33.7); MCHC 33.9 g/dl (32.0-36.0); MEAN CELL VOLUME 85.2 fl (80-96); MEAN PLT VOLUME 7.2 fl (7.5-11.1); MONO % 8.2 % (3.8-10.2); NEUT % 78.9 % (42.8-82.8); PLATELET COUNT 205 10^3/uL (134-434); RDW 16.4 % (11.6-15.6); WHITE BLOOD COUNT 12.5 K/mm3 (4.0-10.0)
[2024-09-01 01:33] LABS: BASO % 0.7 % (0-2.0); HEMATOCRIT 23.6 % (32.4-45.2); HEMOGLOBIN 7.8 GM/dL (10.7-15.3); MCH 28.7 pg (25.7-33.7); MCHC 33.2 g/dl (32.0-36.0); MEAN CELL VOLUME 86.6 fl (80-96); MEAN PLT VOLUME 7.9 fl (7.5-11.1); NEUT % 77.3 % (42.8-82.8); PLATELET COUNT 205 10^3/uL (134-434); RBC 2.73 M/mm3 (3.60-5.2); RDW 16.1 % (11.6-15.6)
[2024-09-01] MEDS: HYDROmorphone HCl 2 MG/ML VIAL IVPUSH PRN ×2 (05:24→16:01)
[2024-09-01] MEDS: CEFEPIME HCL 1 GM VIAL (RESTRICTED TO ID) IVPB SCH ×2 (07:19→07:20)
[2024-09-01 08:11] LABS: BASO % 0.6 % (0-2.0); EOS % 2.9 % (0-4.5); HEMATOCRIT 22.7 % (32.4-45.2); HEMOGLOBIN 7.8 GM/dL (10.7-15.3); LYMPH % 14.9 % (8-40); MCH 29.8 pg (25.7-33.7); MCHC 34.2 g/dl (32.0-36.0); MONO % 7.7 % (3.8-10.2); NEUT % 73.9 % (42.8-82.8); PLATELET COUNT 199 10^3/uL (134-434); RBC 2.61 M/mm3 (3.60-5.2); WHITE BLOOD COUNT 12.9 K/mm3 (4.0-10.0)
[2024-09-01 08:20] LABS: CHLORIDE 97 mmol/L (98-107); POTASSIUM 4.7 mmol/L (3.5-5.1); SODIUM 132 mmol/L (136-145)
[2024-09-01 08:30] LABS: BLOOD UREA NITROGEN 58.3 mg/dL (7-18)
[2024-09-01 08:31] LABS: ALBUMIN 2.1 g/dl (3.4-5.0); ANION GAP 11 mmol/L (4-13); CO2 24 mmol/L (21-32); GLUCOSE,RANDOM 108 mg/dL (74-106); SGOT/AST 11 U/L (15-37); SGPT/ALT 18 U/L (13-61)
[2024-09-01 08:32] LABS: CALCIUM 7.9 mg/dL (8.5-10.1); MAGNESIUM 1.9 mg/dL (1.8-2.4)
[2024-09-01 08:33] LABS: BILIRUBIN,TOTAL 0.3 mg/dL (0.2-1); TOT PROT 4.9 g/dl (6.4-8.2)
[2024-09-01 08:34] LABS: ALK PHOS 130 U/L (45-117)
[2024-09-01 08:35] LABS: CREATININE 10.4 mg/dL (0.55-1.3)
[2024-09-01] MEDS: HYDROmorphone HCl 2 MG/ML VIAL IVPB ONE (12:00)
[2024-09-01 13:06] LABS: BASO % 0.6 % (0-2.0); EOS % 3.4 % (0-4.5); HEMATOCRIT 26.9 % (32.4-45.2); HEMOGLOBIN 9.1 GM/dL (10.7-15.3); LYMPH % 13.6 % (8-40); MCHC 33.9 g/dl (32.0-36.0); MEAN CELL VOLUME 85.4 fl (80-96); MEAN PLT VOLUME 7.6 fl (7.5-11.1); MONO % 8.8 % (3.8-10.2); NEUT % 73.6 % (42.8-82.8); PLATELET COUNT 184 10^3/uL (134-434); RBC 3.15 M/mm3 (3.60-5.2); RDW 15.6 % (11.6-15.6); WHITE BLOOD COUNT 11.4 K/mm3 (4.0-10.0)
[2024-09-01 16:38] VITALS: BMI 26.6
[2024-09-01] MEDS: oxyCODONE HCL 5 MG TABLET PO PRN (17:23)
[2024-09-01] MEDS: EPOETIN ALFA-EPBX 10,000 UNIT/ML VIAL SQ ONE (17:24)
[2024-09-01] MEDS: IRON SUCROSE INJECTION 100 MG in SODIUM CHLORIDE 95 ML IVPB ONE (17:24)
[2024-09-01] MEDS: PERITONEAL DIALYSIS 1.5% SOLN 2,500 ML IP SCH (23:25)
[2024-09-02 09:07] LABS: CHLORIDE 96 mmol/L (98-107); POTASSIUM 4.6 mmol/L (3.5-5.1); SODIUM 133 mmol/L (136-145)
[2024-09-02 09:09] LABS: CALCIUM 8.6 mg/dL (8.5-10.1)
[2024-09-02 09:10] LABS: ALBUMIN 2.1 g/dl (3.4-5.0); ANION GAP 10 mmol/L (4-13); BLOOD UREA NITROGEN 52.5 mg/dL (7-18); CO2 26 mmol/L (21-32); GLUCOSE,RANDOM 96 mg/dL (74-106); MAGNESIUM 1.8 mg/dL (1.8-2.4)
[2024-09-02] MEDS: POTASSIUM CHLORIDE TABS 20 MEQ TABLET.ER (FP) PO SCH (09:11)
[2024-09-02 09:13] LABS: SGOT/AST 13 U/L (15-37)
[2024-09-02 09:14] LABS: BILIRUBIN,TOTAL 0.4 mg/dL (0.2-1); CREATININE 9.7 mg/dL (0.55-1.3)
[2024-09-02 09:16] LABS: ALK PHOS 125 U/L (45-117)
[2024-09-02 09:21] LABS: BASO % 0.7 % (0-2.0); EOS % 4.9 % (0-4.5); HEMATOCRIT 26.2 % (32.4-45.2); HEMOGLOBIN 8.9 GM/dL (10.7-15.3); LYMPH % 17.8 % (8-40); MCH 29.1 pg (25.7-33.7); MCHC 33.9 g/dl (32.0-36.0); MEAN CELL VOLUME 85.8 fl (80-96); MEAN PLT VOLUME 7.7 fl (7.5-11.1); MONO % 8.7 % (3.8-10.2); NEUT % 67.9 % (42.8-82.8); PLATELET COUNT 213 10^3/uL (134-434); RBC 3.05 M/mm3 (3.60-5.2); RDW 15.7 % (11.6-15.6); SGPT/ALT 15 U/L (13-61); WHITE BLOOD COUNT 10.7 K/mm3 (4.0-10.0)
[2024-09-02] MEDS ORDERED: LACTULOSE 20 GM/30 ML UDC (FOR ORAL USE ONLY) PO ONE (12:55)
[2024-09-02] MEDS: DOCUSATE SODIUM 100 MG CAPSULE (FP) PO SCH (13:54)
[2024-09-03] MEDS: POLYETHYLENE GLYCOL (HEALTHYLAX) 3350 17 GM PACKET PO SCH (09:52)
[2024-09-03] MEDS: POTASSIUM CHLORIDE TABS 10 MEQ TABLET.ER (FP) PO SCH (09:52)
[2024-09-03 12:03] LABS: BASO % 0.5 % (0-2.0); EOS % 4.8 % (0-4.5); HEMATOCRIT 26.5 % (32.4-45.2); HEMOGLOBIN 9.1 GM/dL (10.7-15.3); LYMPH % 15.6 % (8-40); MCH 29.8 pg (25.7-33.7); MCHC 34.2 g/dl (32.0-36.0); MEAN CELL VOLUME 87.2 fl (80-96); MEAN PLT VOLUME 7.3 fl (7.5-11.1); MONO % 8.4 % (3.8-10.2); NEUT % 70.7 % (42.8-82.8); PLATELET COUNT 241 10^3/uL (134-434); RBC 3.04 M/mm3 (3.60-5.2); RDW 15.2 % (11.6-15.6); WHITE BLOOD COUNT 8.5 K/mm3 (4.0-10.0)
[2024-09-03 12:28] LABS: CHLORIDE 96 mmol/L (98-107); POTASSIUM 5.2 mmol/L (3.5-5.1); SODIUM 133 mmol/L (136-145)
[2024-09-03 12:32] LABS: ALBUMIN 2.2 g/dl (3.4-5.0); ANION GAP 8 mmol/L (4-13); BLOOD UREA NITROGEN 51.4 mg/dL (7-18); CO2 29 mmol/L (21-32); GLUCOSE,RANDOM 88 mg/dL (74-106); MAGNESIUM 2.1 mg/dL (1.8-2.4)
[2024-09-03 12:35] LABS: CREATININE 10.3 mg/dL (0.55-1.3); SGOT/AST 14 U/L (15-37); SGPT/ALT 13 U/L (13-61)
[2024-09-03 12:36] LABS: BILIRUBIN,TOTAL 0.8 mg/dL (0.2-1)
[2024-09-03 12:37] LABS: TOT PROT 5.1 g/dl (6.4-8.2)
[2024-09-03 12:38] LABS: ALK PHOS 127 U/L (45-117)
[2024-09-03] MEDS: LACTULOSE 20 GM/30 ML UDC (FOR ORAL USE ONLY) PO ONE (16:34)
[2024-09-04] MEDS: ACETAMINOPHEN 325 MG TABLET (FP) PO ONE ×2 (07:18→22:24)
[2024-09-04 12:35] LABS: BASO % 0.6 % (0-2.0); EOS % 4.8 % (0-4.5); HEMOGLOBIN 9.5 GM/dL (10.7-15.3); LYMPH % 11.9 % (8-40); MCH 29.3 pg (25.7-33.7); MEAN CELL VOLUME 88.8 fl (80-96); MEAN PLT VOLUME 6.9 fl (7.5-11.1); MONO % 9.3 % (3.8-10.2); NEUT % 73.4 % (42.8-82.8); PLATELET COUNT 267 10^3/uL (134-434); RBC 3.26 M/mm3 (3.60-5.2); RDW 15.1 % (11.6-15.6); WHITE BLOOD COUNT 7.9 K/mm3 (4.0-10.0)
[2024-09-04 12:58] LABS: CHLORIDE 97 mmol/L (98-107); SODIUM 135 mmol/L (136-145)
[2024-09-04 13:00] LABS: ALBUMIN 2.2 g/dl (3.4-5.0); ANION GAP 8 mmol/L (4-13); CALCIUM 9.3 mg/dL (8.5-10.1); CO2 30 mmol/L (21-32); GLUCOSE,RANDOM 94 mg/dL (74-106)
[2024-09-04 13:03] LABS: SGOT/AST 15 U/L (15-37); SGPT/ALT 13 U/L (13-61)
[2024-09-04 13:05] LABS: BILIRUBIN,TOTAL 0.5 mg/dL (0.2-1); TOT PROT 5.3 g/dl (6.4-8.2)
[2024-09-04 13:06] LABS: ALK PHOS 129 U/L (45-117)
[2024-09-04 13:25] LABS: CREATININE 10.3 mg/dL (0.55-1.3)
[2024-09-04] MEDS ORDERED: PERITONEAL DIALYSIS 2.5% SOLN 2,500 ML IP SCH (13:45)
[2024-09-04 15:10] LABS: BF WBC & OTHER NUCLEATED CELLS 16 /mm3
[2024-09-04 16:21] LABS: BODY FLUID MONOCYTE 68 %; BODYL FLD EOSINOPHIL 6 %
[2024-09-04] MEDS: PERITONEAL DIALYSIS 2.5% SOLN 2,000 ML IP SCH (18:23)
[2024-09-05] MEDS: PERITONEAL DIALYSIS 1.5% SOLN 2,000 ML IP SCH (00:48)
[2024-09-05 10:58] LABS: HEMATOCRIT 27.6 % (32.4-45.2); HEMOGLOBIN 9.4 GM/dL (10.7-15.3); MCH 29.6 pg (25.7-33.7); MCHC 33.9 g/dl (32.0-36.0); MEAN CELL VOLUME 87.1 fl (80-96); PLATELET COUNT 283 10^3/uL (134-434); RBC 3.17 M/mm3 (3.60-5.2); RDW 15.2 % (11.6-15.6); WHITE BLOOD COUNT 5.7 K/mm3 (4.0-10.0)
[2024-09-05 13:14] LABS: CHLORIDE 96 mmol/L (98-107); POTASSIUM 4.3 mmol/L (3.5-5.1); SODIUM 133 mmol/L (136-145)
[2024-09-05 13:17] LABS: CALCIUM 8.8 mg/dL (8.5-10.1)
[2024-09-05 13:18] LABS: ALBUMIN 1.9 g/dl (3.4-5.0); ANION GAP 6 mmol/L (4-13); BLOOD UREA NITROGEN 46.5 mg/dL (7-18); CO2 30 mmol/L (21-32); GLUCOSE,RANDOM 105 mg/dL (74-106)
[2024-09-05 13:19] LABS: SGPT/ALT 12 U/L (13-61)
[2024-09-05 13:20] LABS: SGOT/AST 18 U/L (15-37)
[2024-09-05 13:21] LABS: BILIRUBIN,TOTAL 0.5 mg/dL (0.2-1)
[2024-09-05 13:22] LABS: ALK PHOS 115 U/L (45-117); CREATININE 10.4 mg/dL (0.55-1.3)
[2024-09-05] MEDS: metoPROLOL SUCCINATE 25 MG TAB.SR.24H (FP) PO SCH (14:36)
[2024-09-05] MEDS: ACETAMINOPHEN 325 MG TABLET (FP) PO ONE (23:00)
[2024-09-06] MEDS: HEPARIN NA (PORCINE) 5,000 UNITS/ML 1ML VIAL SQ SCH (13:22)
[2024-09-06] MEDS: EPOETIN ALFA-EPBX 10,000 UNIT/ML VIAL SQ ONE (13:23)
[2024-09-06] MEDS: ACETAMINOPHEN 325 MG TABLET (FP) PO PRN (17:13)
[2024-09-07] MEDS: oxyCODONE HCL 5 MG TABLET PO PRN (02:37)
[2024-09-07] MEDS ORDERED: HYDROmorphone HCl 2 MG/ML VIAL IVPB PRN (15:00)
[2024-09-07] MEDS: HYDROmorphone HCl 2 MG/ML VIAL IVPB PRN (22:30)
[2024-09-08 00:54] VITALS: RESP 18
[2024-09-08 07:49] LABS: BASO % 0.7 % (0-2.0); EOS % 5.9 % (0-4.5); HEMATOCRIT 26.5 % (32.4-45.2); HEMOGLOBIN 8.8 GM/dL (10.7-15.3); LYMPH % 18.3 % (8-40); MCH 29.3 pg (25.7-33.7); MCHC 33.3 g/dl (32.0-36.0); MEAN CELL VOLUME 87.8 fl (80-96); MEAN PLT VOLUME 7.1 fl (7.5-11.1); NEUT % 63.1 % (42.8-82.8); PLATELET COUNT 375 10^3/uL (134-434); RBC 3.02 M/mm3 (3.60-5.2); WHITE BLOOD COUNT 6.7 K/mm3 (4.0-10.0)
[2024-09-08 08:07] LABS: CHLORIDE 96 mmol/L (98-107); SODIUM 134 mmol/L (136-145)
[2024-09-08 08:10] LABS: CALCIUM 8.7 mg/dL (8.5-10.1)
[2024-09-08 08:11] LABS: ALBUMIN 1.6 g/dl (3.4-5.0); ANION GAP 8 mmol/L (4-13); BLOOD UREA NITROGEN 45.8 mg/dL (7-18); CO2 31 mmol/L (21-32); GLUCOSE,RANDOM 87 mg/dL (74-106)
[2024-09-08 08:14] LABS: SGOT/AST 32 U/L (15-37); SGPT/ALT 14 U/L (13-61)
[2024-09-08 08:15] LABS: BILIRUBIN,TOTAL 0.6 mg/dL (0.2-1); TOT PROT 4.6 g/dl (6.4-8.2)
[2024-09-08 08:17] LABS: ALK PHOS 108 U/L (45-117)
[2024-09-08 08:21] LABS: CREATININE 10.2 mg/dL (0.55-1.3)
[2024-09-09 09:44] LABS: BASO % 0.6 % (0-2.0); EOS % 5.3 % (0-4.5); HEMATOCRIT 27.7 % (32.4-45.2); HEMOGLOBIN 9.5 GM/dL (10.7-15.3); LYMPH % 19.2 % (8-40); MCH 29.7 pg (25.7-33.7); MCHC 34.3 g/dl (32.0-36.0); MEAN CELL VOLUME 86.8 fl (80-96); MEAN PLT VOLUME 6.7 fl (7.5-11.1); MONO % 10.1 % (3.8-10.2); NEUT % 64.8 % (42.8-82.8); PLATELET COUNT 428 10^3/uL (134-434); RBC 3.19 M/mm3 (3.60-5.2); RDW 14.9 % (11.6-15.6); WHITE BLOOD COUNT 6.7 K/mm3 (4.0-10.0)
[2024-09-09 10:03] LABS: CHLORIDE 94 mmol/L (98-107); SODIUM 133 mmol/L (136-145)
[2024-09-09 10:14] LABS: ALBUMIN 1.6 g/dl (3.4-5.0); GLUCOSE,RANDOM 85 mg/dL (74-106)
[2024-09-09 10:18] LABS: SGOT/AST 31 U/L (15-37)
[2024-09-09 10:19] LABS: BILIRUBIN,TOTAL 0.5 mg/dL (0.2-1); TOT PROT 4.6 g/dl (6.4-8.2)
[2024-09-09 10:20] LABS: ALK PHOS 110 U/L (45-117)
[2024-09-09 10:23] LABS: CREATININE 10.2 mg/dL (0.55-1.3)
[2024-09-09 10:24] LABS: SGPT/ALT 15 U/L (13-61)
[2024-09-09 10:44] LABS: ANION GAP 9 mmol/L (4-13); CO2 30 mmol/L (21-32)
[2024-09-09] MEDS: HYDROmorphone HCl 2 MG/ML VIAL IVPUSH ONE (11:19)
[2024-09-09] MEDS: EPOETIN ALFA-EPBX 10,000 UNIT/ML VIAL SQ ONE (17:18)
[2024-09-09] MEDS: ACETAMINOPHEN 1000 MG/100 ML BAG IVPB ONE (22:20)
[2024-09-10 14:23] VITALS: BP 150/99; PULSE 101; TEMP 98.3
[2024-09-11] MEDS ORDERED: ASPIRIN 81 MG CHEWABLE TABLETS PO SCH (10:00)
== END 2024-09-10 14:29 | disposition home or self-care (01) | DRG 371 ==
LOC: JER 11:11 → JERBED 14:24 → JICU 20:28 → J4S 09-01 16:37
PROVIDERS: ADMIT Internal Medicine Pulmonary Disease; ATTEND Family Medicine
PROC: 05HD33Z Insertion of Infusion Device into Right Cephalic Vein, Percutaneous Approach (ICD-10-PCS; principal; 2024-08-31)
PROC: B54MZZA Ultrasonography of Right Upper Extremity Veins, Guidance (ICD-10-PCS; 2024-08-31)
DX: K68.3 Retroperitoneal hematoma (principal); N18.6 End stage renal disease; J98.11 Atelectasis; I12.0 Hypertensive chronic kidney disease with stage 5 chronic kidney disease or end stage renal disease; E87.6 Hypokalemia; E83.42 Hypomagnesemia; D64.9 Anemia, unspecified; E03.9 Hypothyroidism, unspecified; J45.909 Unspecified asthma, uncomplicated; K59.00 Constipation, unspecified; I25.10 Atherosclerotic heart disease of native coronary artery without angina pectoris; R00.0 Tachycardia, unspecified; Z88.0 Allergy status to penicillin
CPT/HCPCS: 0241U-QW; 36415; 36430; 71045-TC-FY; 71275-TC; 74174-TC; 74176-TC; 80048; 80053; 82042; 82308; 82728; 82803; 82945; 82962; 83605; 83735; 84100; 84703; 85025; 85027; 85384; 85610; 85730; 86850; 86870; 86880; 86900; 86901; 86902; 86922; 87040; 87070; 87075; 87205; 93005; 93010; 93970-TC; 97116-GP; 97161-GP; 99285-25; J0131; J1644; J1756; P9058; Q5106; Q9967

== ENCOUNTER 2024-11-14 10:37 | Inpatient (IN) | payer OTHER ==
[2024-11-14 10:48] VITALS: BMI 27.3
[2024-11-14 12:05] LABS: BASO % 0.6 % (0-2.0); EOS % 3.2 % (0-4.5); HEMATOCRIT 33.8 % (32.4-45.2); HEMOGLOBIN 11.4 GM/dL (10.7-15.3); LYMPH % 21.6 % (8-40); MCH 30.1 pg (25.7-33.7); MCHC 33.7 g/dl (32.0-36.0); MEAN CELL VOLUME 89.3 fl (80-96); MEAN PLT VOLUME 7.4 fl (7.5-11.1); NEUT % 67.6 % (42.8-82.8); PLATELET COUNT 276 10^3/uL (134-434); RBC 3.79 M/mm3 (3.60-5.2); RDW 16.4 % (11.6-15.6); WHITE BLOOD COUNT 5.6 K/mm3 (4.0-10.0)
[2024-11-14 12:43] LABS: CHLORIDE 91 mmol/L (98-107); POTASSIUM 3.7 mmol/L (3.5-5.1); SODIUM 131 mmol/L (136-145)
[2024-11-14 12:45] LABS: ALBUMIN 2.7 g/dl (3.4-5.0); CALCIUM 9.6 mg/dL (8.5-10.1)
[2024-11-14 12:46] LABS: ANION GAP 11 mmol/L (4-13); BLOOD UREA NITROGEN 40.8 mg/dL (7-18); CO2 29 mmol/L (21-32); GLUCOSE,RANDOM 96 mg/dL (74-106)
[2024-11-14 12:49] LABS: SGOT/AST 18 U/L (15-37); SGPT/ALT 31 U/L (13-61)
[2024-11-14 12:50] LABS: BILIRUBIN,TOTAL 0.4 mg/dL (0.2-1)
[2024-11-14 12:51] LABS: CREATININE 9.2 mg/dL (0.55-1.3)
[2024-11-14 12:52] LABS: ALK PHOS 168 U/L (45-117)
[2024-11-14] MEDS ORDERED: ACETAMINOPHEN INJECTION 100 ML ONE (13:57)
[2024-11-14 14:03] LABS: INR 1.01 (0.83-1.09); PROTHROMBIN TIME (PATIENT) 11.6 SEC (9.7-13.0)
[2024-11-14] MEDS: ACETAMINOPHEN 1000 MG/100 ML BAG IVPB ONE (14:04)
[2024-11-14 14:06] LABS: ACTIVATED PTT 30.6 SECONDS (25.2-36.5)
[2024-11-14] MEDS: morphine SULFATE 4 MG/ML VIAL IVPUSH ONE (17:18)
[2024-11-14 17:27] LABS: BF WBC & OTHER NUCLEATED CELLS 1904 /mm3
[2024-11-14] MEDS ORDERED: HYDROmorphone HCL CARPU-JECT 2 MG/1 ML DISP.SYRIN ONE ×2 (17:30→20:03)
[2024-11-14] MEDS: HYDROmorphone HCl 2 MG/ML VIAL IVPB ONE (17:42)
[2024-11-14] MEDS: HYDROmorphone HCL 2 MG TABLET PO ONE (17:44)
[2024-11-14] MEDS ORDERED: cefTRIAXone SODIUM 1 GM VIAL ONE (19:13)
[2024-11-14] MEDS: CEFTRIAXONE 1 GM in DEXTROSE 5%-WATER - 100 ML IVPB ONE (19:41)
[2024-11-14] MEDS: CEFTRIAXONE 2 GM in DEXTROSE 5%-WATER - 100 ML IVPB ONE (20:29)
[2024-11-14] MEDS: HYDROmorphone HCl 2 MG/ML VIAL IVPUSH ONE (20:29)
[2024-11-14] MEDS ORDERED: VANCOMYCIN 1 GM PREMIX (F) 1 GM/200 ML BAG ONE (20:57)
[2024-11-14] MEDS: VANCOMYCIN 1,000 MG in DEXTROSE 5%-WATER - 250 ML IVPB ONE (20:58)
[2024-11-15 01:30] VITALS: RESP 18
[2024-11-15] MEDS ORDERED: DOCUSATE SODIUM 100 MG CAPSULE (FP) PO PRN (02:59)
[2024-11-15] MEDS: oxyCODONE HCL 5 MG TABLET PO PRN ×2 (03:58→11:14)
[2024-11-15] MEDS ORDERED: ACETAMINOPHEN 1000 MG/100 ML BAG IVPB PRN (05:06)
[2024-11-15] MEDS: HYDROmorphone HCL CARPU-JECT 2 MG/1 ML DISP.SYRIN IVPB PRN (08:49)
[2024-11-15 09:18] LABS: BASO % 0.4 % (0-2.0); EOS % 2.5 % (0-4.5); HEMATOCRIT 29.8 % (32.4-45.2); HEMOGLOBIN 9.9 GM/dL (10.7-15.3); LYMPH % 15.5 % (8-40); MCH 30.2 pg (25.7-33.7); MCHC 33.2 g/dl (32.0-36.0); MEAN CELL VOLUME 90.7 fl (80-96); MEAN PLT VOLUME 7.8 fl (7.5-11.1); MONO % 7.9 % (3.8-10.2); NEUT % 73.7 % (42.8-82.8); PLATELET COUNT 277 10^3/uL (134-434); RBC 3.28 M/mm3 (3.60-5.2); RDW 16.4 % (11.6-15.6); WHITE BLOOD COUNT 5.2 K/mm3 (4.0-10.0)
[2024-11-15 09:47] LABS: CHLORIDE 90 mmol/L (98-107); SODIUM 129 mmol/L (136-145)
[2024-11-15 09:56] LABS: CALCIUM 9.3 mg/dL (8.5-10.1)
[2024-11-15 09:59] LABS: ALBUMIN 2.2 g/dl (3.4-5.0); ANION GAP 11 mmol/L (4-13); BLOOD UREA NITROGEN 51.3 mg/dL (7-18); CO2 28 mmol/L (21-32)
[2024-11-15 10:00] LABS: GLUCOSE,RANDOM 92 mg/dL (74-106)
[2024-11-15 10:02] LABS: SGOT/AST 9 U/L (15-37); SGPT/ALT 20 U/L (13-61)
[2024-11-15 10:03] LABS: BILIRUBIN,TOTAL 0.3 mg/dL (0.2-1); TOT PROT 5.7 g/dl (6.4-8.2)
[2024-11-15] MEDS: ASPIRIN 81 MG CHEWABLE TABLETS PO SCH (10:12)
[2024-11-15] MEDS: SEVELAMER CARBONATE 800 MG TAB (FP) PO SCH (10:12)
[2024-11-15] MEDS: CALCITRIOL 0.25 MCG CAPSULE (FP) PO SCH (10:12)
[2024-11-15] MEDS: BUDESONIDE/FORMETEROL FUMARATE 160/4.5 mcg INHALER IH SCH (10:13)
[2024-11-15 10:15] LABS: ALK PHOS 133 U/L (45-117); CREATININE 11.1 mg/dL (0.55-1.3)
[2024-11-15] MEDS: PERITONEAL DIALYSIS 2.5% SOLN 2,500 ML IP SCH (10:25)
[2024-11-15 11:31] LABS: BODY FLUID BASOPHIL 1 %; BODY FLUID MONOCYTE 34 %; BODYL FLD EOSINOPHIL 4 %
[2024-11-15 11:32] LABS: BODY FLUID MACROPHAGES 1 %
[2024-11-15 13:08] LABS: BODY FLUID ALBUMIN 0.2 g/dL (Not Estab.)
[2024-11-15] MEDS ORDERED: PERITONEAL DIALYSIS 2.5% SOLN 2,500 ML IP SCH (14:42)
[2024-11-15] MEDS: PERITONEAL DIALYSIS 2.5% IP SCH (16:54)
[2024-11-15] MEDS: VANCOMYCIN IP SCH (16:54)
[2024-11-15] MEDS ORDERED: CEFTRIAXONE 2 GM-D5W BAG 2 GM/50 ML BAG IVPB SCH (20:00)
[2024-11-15 20:57] LABS: ANISOCYTOSIS 2+; MACROCYTOSIS 0
[2024-11-15 21:13] LABS: HEMATOCRIT 29.9 % (32.4-45.2); HEMOGLOBIN 10.4 GM/dL (10.7-15.3); MCH 31.2 pg (25.7-33.7); MCHC 34.9 g/dl (32.0-36.0); MEAN CELL VOLUME 89.4 fl (80-96); MEAN PLT VOLUME 7.8 fl (7.5-11.1); PLATELET COUNT 287 10^3/uL (134-434); RBC 3.34 M/mm3 (3.60-5.2); RDW 16.4 % (11.6-15.6); WHITE BLOOD COUNT 5.3 K/mm3 (4.0-10.0)
[2024-11-15] MEDS: POLYETHYLENE GLYCOL (HEALTHYLAX) 3350 17 GM PACKET PO SCH (21:49)
[2024-11-15] MEDS: ONDANSETRON *ODT* 4 MG TABLET SL ONE (23:26)
[2024-11-15] MEDS: FAMOTIDINE 20 MG TABLET PO ONE (23:26)
[2024-11-16] MEDS: PERITONEAL DIALYSIS 2.5% SOLN 2,500 ML IP SCH (03:07)
[2024-11-16 10:21] LABS: CHLORIDE 91 mmol/L (98-107); SODIUM 133 mmol/L (136-145)
[2024-11-16 10:23] LABS: CALCIUM 8.8 mg/dL (8.5-10.1); GLUCOSE,RANDOM 89 mg/dL (74-106)
[2024-11-16 10:24] LABS: ANION GAP 10 mmol/L (4-13); BLOOD UREA NITROGEN 44.3 mg/dL (7-18); CO2 32 mmol/L (21-32)
[2024-11-16 10:28] LABS: CREATININE 10.2 mg/dL (0.55-1.3); SGOT/AST 10 U/L (15-37); SGPT/ALT 17 U/L (13-61)
[2024-11-16 10:29] LABS: BILIRUBIN,TOTAL 0.3 mg/dL (0.2-1); TOT PROT 5.6 g/dl (6.4-8.2)
[2024-11-16 10:31] LABS: ALK PHOS 128 U/L (45-117)
[2024-11-16] MEDS: PANTOPRAZOLE 40 MG TABLET PO SCH (10:36)
[2024-11-16 11:19] LABS: BASO % 0.5 % (0-2.0); EOS % 9.7 % (0-4.5); HEMATOCRIT 29.1 % (32.4-45.2); HEMOGLOBIN 9.6 GM/dL (10.7-15.3); LYMPH % 23.6 % (8-40); MCH 30.2 pg (25.7-33.7); MCHC 32.9 g/dl (32.0-36.0); MEAN CELL VOLUME 91.8 fl (80-96); MEAN PLT VOLUME 7.9 fl (7.5-11.1); MONO % 9.3 % (3.8-10.2); NEUT % 56.9 % (42.8-82.8); PLATELET COUNT 273 10^3/uL (134-434); RBC 3.16 M/mm3 (3.60-5.2); RDW 16.5 % (11.6-15.6); WHITE BLOOD COUNT 4.6 K/mm3 (4.0-10.0)
[2024-11-16] MEDS ORDERED: VANCOMYCIN/WATER FOR INJ (PEG) 1,000 MG/200 ML BAG IVPB SCH (21:00)
[2024-11-17 08:23] LABS: BASO % 0.7 % (0-2.0); EOS % 10.7 % (0-4.5); HEMATOCRIT 29.4 % (32.4-45.2); HEMOGLOBIN 10.5 GM/dL (10.7-15.3); LYMPH % 15.3 % (8-40); MCH 31.7 pg (25.7-33.7); MCHC 35.6 g/dl (32.0-36.0); MEAN PLT VOLUME 7.5 fl (7.5-11.1); MONO % 6.9 % (3.8-10.2); NEUT % 66.4 % (42.8-82.8); PLATELET COUNT 296 10^3/uL (134-434); RBC 3.31 M/mm3 (3.60-5.2); RDW 16.3 % (11.6-15.6); WHITE BLOOD COUNT 4.4 K/mm3 (4.0-10.0)
[2024-11-17 08:45] LABS: CHLORIDE 92 mmol/L (98-107); POTASSIUM 3.3 mmol/L (3.5-5.1); SODIUM 134 mmol/L (136-145)
[2024-11-17 08:49] LABS: CALCIUM 8.8 mg/dL (8.5-10.1); GLUCOSE,RANDOM 110 mg/dL (74-106)
[2024-11-17 08:50] LABS: ANION GAP 9 mmol/L (4-13); BLOOD UREA NITROGEN 38.9 mg/dL (7-18); CO2 33 mmol/L (21-32)
[2024-11-17 08:52] LABS: SGOT/AST 10 U/L (15-37); SGPT/ALT 17 U/L (13-61)
[2024-11-17 08:54] LABS: BILIRUBIN,TOTAL 0.4 mg/dL (0.2-1); TOT PROT 5.8 g/dl (6.4-8.2)
[2024-11-17 08:56] LABS: ALK PHOS 133 U/L (45-117)
[2024-11-17] MEDS: POTASSIUM CHLORIDE ORAL LIQUID 20 MEQ/15 ML PO ONE (14:13)
[2024-11-17] MEDS ORDERED: VANCOMYCIN 1,000 MG in DEXTROSE 5%-WATER - 250 ML IVPB SCH (21:00)
[2024-11-18] MEDS: ACETAMINOPHEN 500 MG TABLET (FP) PO ONE (15:10)
[2024-11-18 15:24] VITALS: BP 145/86; PULSE 95; TEMP 99.1
[2024-11-18 18:58] LABS: BF WBC & OTHER NUCLEATED CELLS 61 /mm3; BODY FLUID MONOCYTE 43 %; BODYL FLD EOSINOPHIL 6 %
== END 2024-11-18 15:30 | disposition home or self-care (01) | DRG 371 ==
LOC: JER 10:37 → JERBED 18:40 → J4S 11-15 01:01
PROVIDERS: ADMIT Internal Medicine; ATTEND Internal Medicine
DX: K65.8 Other peritonitis (principal); N18.6 End stage renal disease; C85.80 Other specified types of non-Hodgkin lymphoma, unspecified site; I12.0 Hypertensive chronic kidney disease with stage 5 chronic kidney disease or end stage renal disease; E03.9 Hypothyroidism, unspecified; K59.00 Constipation, unspecified; R10.30 Lower abdominal pain, unspecified; R19.09 Other intra-abdominal and pelvic swelling, mass and lump; I25.10 Atherosclerotic heart disease of native coronary artery without angina pectoris; B95.7 Other staphylococcus as the cause of diseases classified elsewhere; Z99.2 Dependence on renal dialysis; Z88.0 Allergy status to penicillin
CPT/HCPCS: 36415; 74176-TC; 80053; 82042; 82150; 82728; 83540; 83550; 83605; 83690; 85025; 85027; 85610; 85730; 86850; 86900; 86901; 87040; 87070; 87075; 87186; 87205; 93005; 93010; 99285-25; G0480; J0131; Q0162

== ENCOUNTER 2025-02-10 12:08 | Inpatient (IN) | payer OTHER ==
[2025-02-10 14:30] LABS: BASO % 1.5 % (0-2.0); EOS % 4.2 % (0-4.5); HEMATOCRIT 44.9 % (32.4-45.2); HEMOGLOBIN 14.6 GM/dL (10.7-15.3); LYMPH % 20.6 % (8-40); MCH 29.9 pg (25.7-33.7); MCHC 32.4 g/dl (32.0-36.0); MEAN CELL VOLUME 92.2 fl (80-96); MEAN PLT VOLUME 7.3 fl (7.5-11.1); MONO % 7.3 % (3.8-10.2); NEUT % 66.4 % (42.8-82.8); PLATELET COUNT 193 10^3/uL (134-434); RBC 4.87 M/mm3 (3.60-5.2); RDW 16.3 % (11.6-15.6); WHITE BLOOD COUNT 5.2 K/mm3 (4.0-10.0)
[2025-02-10 14:53] LABS: CHLORIDE 93 mmol/L (98-107); POTASSIUM 3.8 mmol/L (3.5-5.1); SODIUM 131 mmol/L (136-145)
[2025-02-10 14:55] LABS: BLOOD UREA NITROGEN 41.7 mg/dL (7-18)
[2025-02-10 14:56] LABS: ALBUMIN 3.2 g/dl (3.4-5.0); ANION GAP 12 mmol/L (4-13); CO2 25 mmol/L (21-32); GLUCOSE,RANDOM 92 mg/dL (74-106); MAGNESIUM 1.7 mg/dL (1.8-2.4)
[2025-02-10 14:59] LABS: SGOT/AST 41 U/L (15-37); SGPT/ALT 27 U/L (13-61)
[2025-02-10 15:00] LABS: BILIRUBIN,TOTAL 0.6 mg/dL (0.2-1); TOT PROT 7.3 g/dl (6.4-8.2)
[2025-02-10 15:02] LABS: ALK PHOS 248 U/L (45-117); CALCIUM 9.5 mg/dL (8.5-10.1); CREATININE 9.9 mg/dL (0.55-1.3)
[2025-02-10] MEDS ORDERED: ACETAMINOPHEN INJECTION 100 ML ONE ×3 (15:28→22:33)
[2025-02-10 15:44] LABS: INR 1.02 (0.83-1.09); PROTHROMBIN TIME (PATIENT) 11.1 SEC (9.7-13.0)
[2025-02-10 15:47] LABS: ACTIVATED PTT 30.9 SECONDS (25.2-36.5)
[2025-02-10] MEDS ORDERED: ACETAMINOPHEN 325 MG TABLET (FP) ONE (16:53)
[2025-02-10 16:58] LABS: HCV DIAGNOSTIC IN-HOUSE W/RFLX NON-REACTIVE (NONREACTIVE); HIV INTERPRETATION NEGATIVE (NEGATIVE)
[2025-02-10] MEDS: ACETAMINOPHEN 1000 MG/100 ML BAG IVPB ONE (17:04)
[2025-02-10] MEDS: ACETAMINOPHEN 500 MG TABLET (FP) PO ONE (17:04)
[2025-02-10] MEDS ORDERED: ASPIRIN COATED 81 MG TABLET.EC ONE (20:02)
[2025-02-10] MEDS: ASPIRIN COATED 81 MG TABLET.EC PO ONE (20:07)
[2025-02-10] MEDS ORDERED: DOCUSATE SODIUM 100 MG CAPSULE (FP) PO PRN (21:20)
[2025-02-10] MEDS ORDERED: ACETAMINOPHEN 325 MG TABLET (FP) PO PRN (21:20)
[2025-02-11] MEDS ORDERED: MELATONIN 5 MG TABLETS ONE (00:11)
[2025-02-11] MEDS: MELATONIN 5 MG TABLETS PO PRN (00:23)
[2025-02-11] MEDS: POTASSIUM CHLORIDE ORAL LIQUID 20 MEQ/15 ML PO ONE (00:23)
[2025-02-11] MEDS: oxyCODONE HCL 5 MG TABLET PO ONE (03:25)
[2025-02-11] MEDS: METHYL SALICYLATE/MENTHOL 30 GM TUBE TP SCH ×2 (06:43→22:44)
[2025-02-11 07:15] LABS: BASO % 0.7 % (0-2.0); EOS % 4.9 % (0-4.5); HEMATOCRIT 38.6 % (32.4-45.2); HEMOGLOBIN 12.9 GM/dL (10.7-15.3); LYMPH % 25.7 % (8-40); MCH 30.5 pg (25.7-33.7); MCHC 33.4 g/dl (32.0-36.0); MEAN CELL VOLUME 91.5 fl (80-96); MEAN PLT VOLUME 6.7 fl (7.5-11.1); MONO % 6.2 % (3.8-10.2); NEUT % 62.5 % (42.8-82.8); PLATELET COUNT 168 10^3/uL (134-434); RBC 4.21 M/mm3 (3.60-5.2); RDW 15.6 % (11.6-15.6); WHITE BLOOD COUNT 5.2 K/mm3 (4.0-10.0)
[2025-02-11 07:46] LABS: CHLORIDE 96 mmol/L (98-107); POTASSIUM 4.4 mmol/L (3.5-5.1); SODIUM 133 mmol/L (136-145)
[2025-02-11 07:48] LABS: ALBUMIN 2.7 g/dl (3.4-5.0); ANION GAP 12 mmol/L (4-13); BLOOD UREA NITROGEN 50.5 mg/dL (7-18); CALCIUM 8.7 mg/dL (8.5-10.1); CO2 24 mmol/L (21-32)
[2025-02-11 07:49] LABS: GLUCOSE,RANDOM 92 mg/dL (74-106); MAGNESIUM 1.7 mg/dL (1.8-2.4)
[2025-02-11 07:51] LABS: SGOT/AST 19 U/L (15-37); SGPT/ALT 21 U/L (13-61)
[2025-02-11 07:52] LABS: PHOSPHOROUS 6.7 mg/dL (2.5-4.9)
[2025-02-11 07:53] LABS: BILIRUBIN,TOTAL 0.5 mg/dL (0.2-1); TOT PROT 5.9 g/dl (6.4-8.2)
[2025-02-11] MEDS ORDERED: ONDANSETRON *ODT* 4 MG TABLET SL PRN ×2 (08:03→19:53)
[2025-02-11] MEDS ORDERED: ALBUTEROL SO4 0.083% IH SOL 2.5 MG/3 ML VIAL.NEB. NEB PRN ×2 (08:07→19:53)
[2025-02-11 08:19] LABS: ALK PHOS 206 U/L (45-117); CREATININE 11.5 mg/dL (0.55-1.3)
[2025-02-11] MEDS: NIFEdipine E.R. 30 MG TABLET PO SCH (10:35)
[2025-02-11] MEDS: ASPIRIN COATED 81 MG TABLET.EC PO SCH (10:35)
[2025-02-11] MEDS: POLYETHYLENE GLYCOL (HEALTHYLAX) 3350 17 GM PACKET PO SCH ×2 (10:35→22:45)
[2025-02-11] MEDS: LIDOCAINE 4% PATCH TP SCH (10:35)
[2025-02-11] MEDS ORDERED: POLYETHYLENE GLYCOL (HEALTHYLAX) 3350 17 GM PACKET ONE (10:47)
[2025-02-11] MEDS ORDERED: ASPIRIN COATED 81 MG TABLET.EC ONE (10:48)
[2025-02-11] MEDS ORDERED: LIDOCAINE 4% PATCH TP ONE (10:48)
[2025-02-11] MEDS ORDERED: NIFEdipine E.R. 30 MG TABLET PO ONE (10:48)
[2025-02-11] MEDS ORDERED: ALBUTEROL SO4 2.5/IPRATROPIUM 0.5 INH SOL 3 ML VIAL.NEB. NEB ONE (12:40)
[2025-02-11] MEDS: ALBUTEROL SO4 2.5/IPRATROPIUM 0.5 INH SOL 3 ML VIAL.NEB. NEB SCH ×2 (12:50→20:30)
[2025-02-11] MEDS ORDERED: SEVELAMER CARBONATE 800 MG TAB (FP) ONE (13:32)
[2025-02-11] MEDS: CALCITRIOL 0.25 MCG CAPSULE (FP) PO SCH (14:10)
[2025-02-11] MEDS: BUDESONIDE/FORMETEROL FUMARATE 160/4.5 mcg INHALER IH SCH ×2 (14:10→22:45)
[2025-02-11] MEDS: SEVELAMER CARBONATE 800 MG TAB (FP) PO SCH (14:10)
[2025-02-11] MEDS: PERITONEAL DIALYSIS 2.5% SOLN 2,500 ML IP SCH ×2 (15:11→21:30)
[2025-02-11] MEDS ORDERED: MELATONIN 5 MG TABLETS PO PRN (19:53)
[2025-02-11] MEDS ORDERED: CHLORHEXIDINE GLUCONATE 4% CLEANSER FOR DECOLONIZATION TP SCH (22:00)
[2025-02-11] MEDS ORDERED: MUPIROCIN 2% TOPICAL OINTMENT FOR DECOLONIZATION NS SCH (22:00)
[2025-02-11] MEDS ORDERED: LIDOCAINE PATCH REMOVAL MC SCH ×2 (22:00)
[2025-02-11] MEDS: MUPIROCIN 2% TOPICAL OINTMENT FOR DECOLONIZATION NS SCH (22:44)
[2025-02-11] MEDS: CHLORHEXIDINE GLUCONATE 4% CLEANSER FOR DECOLONIZATION TP SCH (22:45)
[2025-02-11] MEDS: LIDOCAINE PATCH REMOVAL MC SCH (22:45)
[2025-02-12] MEDS: DOCUSATE SODIUM 100 MG CAPSULE (FP) PO PRN (10:31)
[2025-02-12] MEDS: MAGNESIUM 2GM/50ML STERILE WATER IVPB IVPB ONE (10:35)
[2025-02-12] MEDS: SEVELAMER CARBONATE 800 MG TAB (FP) PO SCH (10:36)
[2025-02-12] MEDS: LIDOCAINE 4% PATCH TP SCH (10:36)
[2025-02-12] MEDS: CALCITRIOL 0.25 MCG CAPSULE (FP) PO SCH (10:36)
[2025-02-12] MEDS: ASPIRIN COATED 81 MG TABLET.EC PO SCH (10:36)
[2025-02-12] MEDS: NIFEdipine E.R. 30 MG TABLET PO SCH (10:36)
[2025-02-12 11:15] LABS: ABSOLUTE IMMATURE GRANULOCYTES 0.01 x10^3/uL (0.0-0.031); BASOPHILS # 0.05 x10^3/uL (0.01-0.08); EOSINOPHIL % 5.7 % (0.7-5.8); EOSINOPHILS # 0.33 x10^3/uL (0.04-0.36); HEMATOCRIT 39.1 % (34.1-44.9); HEMOGLOBIN 12.8 g/dL (11.2-15.7); MCHC 32.7 g/dl (32.2-35.5); MEAN PLT VOLUME 8.9 fl (9.4-12.3); MONOCYTE # 0.43 x10^3/uL (0.24-0.86); MONOCYTE % 7.5 % (4.7-12.5); PLATELET COUNT # 145 x10^3/uL (182-369); RDW 14.8 % (12.2-17.1)
[2025-02-12 11:25] LABS: INR 0.98 (0.83-1.09); PROTHROMBIN TIME (PATIENT) 10.7 SEC (9.7-13.0)
[2025-02-12 11:27] LABS: ACTIVATED PTT 29.8 SECONDS (25.2-36.5)
[2025-02-12] MEDS: NYSTATIN 500,000 UNITS/5 ML SUSPENSION PO ONE (11:35)
[2025-02-12 11:41] LABS: CHLORIDE 95 mmol/L (98-107); POTASSIUM 3.7 mmol/L (3.5-5.1); SODIUM 134 mmol/L (136-145)
[2025-02-12 11:44] LABS: ALBUMIN 2.7 g/dl (3.4-5.0); ANION GAP 13 mmol/L (4-13); CALCIUM 9.1 mg/dL (8.5-10.1); CO2 26 mmol/L (21-32); MAGNESIUM 1.8 mg/dL (1.8-2.4)
[2025-02-12 11:45] LABS: GLUCOSE,RANDOM 117 mg/dL (74-106)
[2025-02-12 11:47] LABS: SGOT/AST 15 U/L (15-37); SGPT/ALT 18 U/L (13-61)
[2025-02-12 11:49] LABS: BILIRUBIN,TOTAL 0.5 mg/dL (0.2-1); TOT PROT 6.1 g/dl (6.4-8.2)
[2025-02-12 11:50] LABS: ALK PHOS 205 U/L (45-117)
[2025-02-12 12:11] LABS: CREATININE 11.3 mg/dL (0.55-1.3)
[2025-02-12] MEDS: LACTULOSE 20 GM/30 ML UDC (FOR ORAL USE ONLY) PO ONE (12:35)
[2025-02-12] MEDS: NYSTATIN 500,000 UNITS/5 ML SUSPENSION PO SCH (12:45)
[2025-02-12] MEDS: LABETALOL HCL 20 MG/4 ML VIAL IVPUSH ONE ×3 (12:45→16:06)
[2025-02-12 12:59] VITALS: BMI 28.7
[2025-02-12] MEDS: DOCUSATE SODIUM 100 MG CAPSULE (FP) PO SCH (13:13)
[2025-02-12] MEDS: PERITONEAL DIALYSIS 4.25% SOL 2,500 ML IP ONE (14:33)
[2025-02-12] MEDS: PERITONEAL DIALYSIS 2.5% SOLN 2,500 ML IP SCH (21:44)
[2025-02-12] MEDS: LOSARTAN POTASSIUM 25 MG TABLET PO SCH (22:18)
[2025-02-12] MEDS: ACETAMINOPHEN 325 MG TABLET (FP) PO PRN (22:20)
[2025-02-13] MEDS ORDERED: ALBUTEROL SO4 0.083% IH SOL 2.5 MG/3 ML VIAL.NEB. NEB PRN (01:19)
[2025-02-13] MEDS ORDERED: ACETAMINOPHEN 325 MG TABLET (FP) PO PRN (01:19)
[2025-02-13] MEDS: PERITONEAL DIALYSIS 2.5% SOLN 2,500 ML IP SCH (03:44)
[2025-02-13] MEDS: NYSTATIN 500,000 UNITS/5 ML SUSPENSION PO SCH (06:22)
[2025-02-13] MEDS: DOCUSATE SODIUM 100 MG CAPSULE (FP) PO SCH (06:22)
[2025-02-13] MEDS: METHYL SALICYLATE/MENTHOL 30 GM TUBE TP SCH (06:22)
[2025-02-13] MEDS: ALBUTEROL SO4 2.5/IPRATROPIUM 0.5 INH SOL 3 ML VIAL.NEB. NEB SCH (07:40)
[2025-02-13] MEDS: SEVELAMER CARBONATE 800 MG TAB (FP) PO SCH (08:14)
[2025-02-13] MEDS: CALCITRIOL 0.25 MCG CAPSULE (FP) PO SCH (09:06)
[2025-02-13] MEDS: LIDOCAINE 4% PATCH TP SCH (09:07)
[2025-02-13] MEDS: POLYETHYLENE GLYCOL (HEALTHYLAX) 3350 17 GM PACKET PO SCH (09:07)
[2025-02-13] MEDS: NIFEdipine E.R. 30 MG TABLET PO SCH (09:07)
[2025-02-13] MEDS: ASPIRIN COATED 81 MG TABLET.EC PO SCH (09:07)
[2025-02-13] MEDS: LOSARTAN POTASSIUM 25 MG TABLET PO SCH (09:07)
[2025-02-13] MEDS: BUDESONIDE/FORMETEROL FUMARATE 160/4.5 mcg INHALER IH SCH (09:08)
[2025-02-13 11:41] LABS: HEMOGLOBIN 11.9 g/dL (11.2-15.7); MCHC 32.2 g/dl (32.2-35.5); MEAN CELL VOLUME 92.3 fl (79.4-94.8); MEAN PLT VOLUME 9.1 fl (9.4-12.3); PLATELET COUNT # 136 x10^3/uL (182-369); RDW 14.6 % (12.2-17.1)
[2025-02-13 12:00] LABS: CHLORIDE 94 mmol/L (98-107); POTASSIUM 3.7 mmol/L (3.5-5.1); SODIUM 135 mmol/L (136-145)
[2025-02-13 12:04] LABS: ALBUMIN 2.4 g/dl (3.4-5.0); ANION GAP 10 mmol/L (4-13); BLOOD UREA NITROGEN 51.4 mg/dL (7-18); CALCIUM 8.9 mg/dL (8.5-10.1); CO2 31 mmol/L (21-32); GLUCOSE,RANDOM 97 mg/dL (74-106)
[2025-02-13 12:08] LABS: SGOT/AST 11 U/L (15-37); SGPT/ALT 13 U/L (13-61)
[2025-02-13 12:09] LABS: BILIRUBIN,TOTAL 0.4 mg/dL (0.2-1); TOT PROT 5.3 g/dl (6.4-8.2)
[2025-02-13 12:51] LABS: ALK PHOS 170 U/L (45-117); CREATININE 10.8 mg/dL (0.55-1.3)
[2025-02-13] MEDS: ONDANSETRON *ODT* 4 MG TABLET SL PRN (16:26)
[2025-02-13] MEDS: PERITONEAL DIALYSIS 2.5% SOLN 2,500 ML IP ONE (17:02)
[2025-02-13] MEDS: PERITONEAL DIALYSIS 4.25% SOL 2,500 ML IP ONE (21:10)
[2025-02-13] MEDS: LIDOCAINE PATCH REMOVAL MC SCH (21:53)
[2025-02-13 23:02] VITALS: RESP 18
[2025-02-14] MEDS: PERITONEAL DIALYSIS 2.5% SOLN 2,500 ML IP SCH (03:15)
[2025-02-14 10:21] VITALS: BP 144/96; PULSE 95; TEMP 98
== END 2025-02-14 13:31 | disposition home or self-care (01) | DRG 291 ==
LOC: JER 12:08 → JERBED 20:09 → JICU 02-11 14:41 → OBSVTOIN 02-12 08:47 → J4S 02-12 20:17
PROVIDERS: ADMIT Internal Medicine; ATTEND Family Medicine
PROC: 3E1M39Z Irrigation of Peritoneal Cavity using Dialysate, Percutaneous Approach (ICD-10-PCS; principal; 2025-02-13)
DX: I13.2 Hypertensive heart and chronic kidney disease with heart failure and with stage 5 chronic kidney disease, or end stage renal disease (principal); I50.23 Acute on chronic systolic (congestive) heart failure; N18.6 End stage renal disease; J45.901 Unspecified asthma with (acute) exacerbation; R18.8 Other ascites; E03.9 Hypothyroidism, unspecified; I25.10 Atherosclerotic heart disease of native coronary artery without angina pectoris; E87.70 Fluid overload, unspecified
CPT/HCPCS: 0241U-QW; 36415; 71046-TC-FY; 71250-TC; 74176-TC; 76937; 80048; 80053; 83735; 83880; 84100; 84439; 84443; 84484; 85025; 85027; 85379; 85610; 85730; 86803; 87389; 93005; 93010; 93306-TC; 93970-TC; 94640; 99285-25; G0378; J0131; Q0162